=== PATIENT | female | born 1940 | race Caucasian/White ===

== ENCOUNTER 2016-07-22 10:19 | Inpatient (IN) | payer MEDICARE, OTHER ==
[2016-07-22 11:34] LABS: ABSOLUTE EOSINOPHILS # (AUTO) 0.1 10^3/uL (0.0-0.6); ABSOLUTE MONOCYTES (AUTO) 0.8 10^3/uL (0.1-1.4); ABSOLUTE NEUT (AUTO) 9.6 10^3/uL (1.7-8.2); BASOPHILS % (AUTO) 0.2 % (0-2); EOSINOPHILS % (AUTO) 1.3 % (0-6); HEMATOCRIT 31.9 % (36.0-47.0); HGB HCT DIFFERENCE -1.9; LYMPHOCYTES % (AUTO) 8.8 % (13-45); MEAN CORPUSCULAR HEMOGLOBIN 30.5 pg (27.0-33.4); MEAN CORPUSCULAR HGB CONC 31.3 g/dL (32.0-36.0); MEAN CORPUSCULAR VOLUME 98 fl (80-97); MONOCYTES % (AUTO) 6.7 % (3-13); RED BLOOD COUNT 3.27 10^6/uL (3.72-5.28); RED CELL DISTRIBUTION WIDTH 14.6 % (11.5-14.0); WHITE BLOOD COUNT 11.6 10^3/uL (4.0-10.5)
[2016-07-22 11:53] LABS: ALANINE AMINOTRANSFERASE 36 U/L (9-52); ALBUMIN 3.5 g/dL (3.5-5.0); ALKALINE PHOSPHATASE 96 U/L (38-126); ASPARTATE AMINO TRANSFERASE 26 U/L (14-36); BILIRUBIN,TOTAL 0.5 mg/dL (0.2-1.3); BLOOD UREA NITROGEN 45 mg/dL (7-20); CALCIUM 8.9 mg/dL (8.4-10.2); CHLORIDE 92 mmol/L (98-107); CREATINE KINASE 41 U/L (30-135); GLUCOSE 289 mg/dL (75-110); TOTAL PROTEIN 5.8 g/dL (6.3-8.2)
[2016-07-22] MEDS ORDERED: IPRATROPIUM/ALBUTEROL 0.5-2.5 MG/3 ML AMPUL NEB ONE (11:59)
[2016-07-22 12:07] LABS: CREATINE KINASE MB 2.43 ng/mL (<4.55)
[2016-07-22 12:16] LABS: TROPONIN I 0.088 ng/mL
[2016-07-22 12:17] LABS: ANION GAP 8 (5-19); CARBON DIOXIDE 41 mmol/L (22-30)
[2016-07-22 12:47] LABS: VENOUS BLOOD BASE EXCESS 12.2 mmol/L; VENOUS BLOOD HCO3 41.7 mmol/L (20-32); VENOUS BLOOD PH 7.3 (7.30-7.42)
[2016-07-22 12:52] LABS: VENOUS BLOOD PCO2 87.6 mmHg (35-63)
--- NOTE | 2016-07-22 12:55 | ER Document Report ---
[id number] SHORTNESS OF BREATH Mode of Arrival: Medic Information source: Patient, Relative, Emergency Med Personnel Notes: 76-year-old female history CHF COPD presents in respiratory distress. Patient was found to be D satting initially in the low 80s. Patient notes that she was in the hospital a few weeks ago had gone home on steroids and was doing well. Denies any fevers or chills Patient stopped smoking 10 years ago TRAVEL OUTSIDE OF THE [place] IN LAST 30 DAYS: No - HPI Onset: This morning Onset/Duration: Sudden Quality of pain: No pain Severity: Severe Pain Level: Denies Associated symptoms: Nonproductive cough, Shortness of breath Exacerbated by: Walking, Coughing Relieved by: Denies Similar symptoms previously: Yes Recently seen / treated by doctor: Yes - Related Data Allergies/Adverse Reactions: lisinopril [From Zestril] Allergy (Severe, Verified 08/29/15 13:16) tongue swelling cefotaxime [From Claforan] Allergy (Verified 06/10/16 17:46) Generalized rash Past Medical History - Social History Smoking Status: Former Smoker Cigarette use (# per day): No Chew tobacco use (# tins/day): No Smoking Education Provided: No Family History: COPD, DM, Hyperlipidemia, Hypertension - Past Medical History Cardiac Medical History: Reports: Hx Congestive Heart Failure, Hx Hypercholesterolemia, Hx Hypertension Pulmonary Medical History: Reports: Hx Asthma, Hx Bronchitis, Hx COPD, Hx Pneumonia, Hx Respiratory Failure Neurological Medical History: Endocrine Medical History: Reports: Hx Diabetes Mellitus Type 2 Renal/ Medical History: GI Medical History: Reports: Hx Gastroesophageal Reflux Disease Musculoskeltal Medical History: Reports Hx Arthritis Skin Medical History: Reports Hx MRSA Psychiatric Medical History: Reports: Hx Anxiety, Hx Depression Infectious Medical History: Reports: Hx MRSA Past Surgical History: Reports: Hx Breast Surgery - benign nodule removed, Hx Cardiac Surgery - ablation, Hx Colostomy - Colon Sigmoid resection on 2015 with colostomy, Hx Hysterectomy, Hx Tonsillectomy, Other - Cataract surgery in her right - Immunizations Immunizations up to date: Yes Hx Diphtheria, Pertussis, Tetanus Vaccination: Yes Hx Pneumococcal Vaccination: 04/08/15 Review of Systems - Review of Systems Notes: REVIEW OF SYSTEMS: CONSTITUTIONAL : Denies fever, chills, or sweats. Denies recent illness. EENT: Denies eye, ear, throat, or mouth pain or symptoms. Denies nasal or sinus congestion or discharge. Denies throat, tongue, or mouth swelling or difficulty swallowing. CARDIOVASCULAR: Denies chest pain. Denies palpitations or racing or irregular heart beat. Denies ankle edema. RESPIRATORY: Admits shortness breath difficulty breathing GASTROINTESTINAL: Denies abdominal pain or distention. Denies nausea, vomiting , or diarrhea. Denies blood in vomitus, stools, or per rectum. Denies black, tarry stools. Denies constipation. GENITOURINARY: Denies difficulty urinating, painful urination, burning, frequency, blood in urine, or discharge. FEMALE GENITOURINARY: Denies vaginal bleeding, heavy or abnormal periods, irregular periods. Denies vaginal discharge or odor. MUSCULOSKELETAL: Denies back or neck pain or stiffness. Denies joint pain or swelling. SKIN: Denies rash, lesions or sores. HEMATOLOGIC : Denies easy bruising or bleeding. LYMPHATIC: Denies swollen, enlarged glands. NEUROLOGICAL: Denies confusion or altered mental status. Denies passing out or loss of consciousness. Denies dizziness or lightheadedness. Denies headache. Denies weakness or paralysis or loss of use of either side. Denies problems with gait or speech. Denies sensory loss, numbness, or tingling. Denies seizures. PSYCHIATRIC: Denies anxiety or stress. Denies depression, suicidal ideation, or homicidal ideation. ALL OTHER SYSTEMS REVIEWED AND NEGATIVE. Dictation was performed using [employer] voice recognition software PHYSICAL EXAMINATION: GENERAL: Moderate respiratory distress noted HEAD: Atraumatic, normocephalic. EYES: Pupils equal round and reactive to light, extraocular movements intact, conjunctiva are normal. ENT: Nares patent, oropharynx clear without exudates. Moist mucous membranes. NECK: Normal range of motion, supple without lymphadenopathy LUNGS: Crackles wheezing all throughout moderate respiratory distress HEART: Regular rate and rhythm without murmurs ABDOMEN: Soft, nontender, nondistended abdomen. No guarding, no rebound. No masses appreciated. Female : deferred Musculoskeletal: Normal range of motion, no pitting or edema. No cyanosis. NEUROLOGICAL: Cranial nerves grossly intact. Normal speech, normal gait. Normal sensory, motor exams PSYCH: Normal mood, normal affect. SKIN: Warm, Dry, normal turgor, no rashes or lesions noted. Physical Exam - Vital signs Vitals: Resp Pulse Ox 22 H 95 07/22/16 10:30 07/22/16 10:30 Course - Re-evaluation Re-evalutation: 07/22/16 12:54 Patient immediately placed on BiPAP, lab work imaging are pending. I expect patient to be hypercapnic to require admission - Vital Signs Vital signs: Temp Pulse Resp BP Pulse Ox 27 H 100 07/22/16 10:44 07/22/16 10:44 - Laboratory Result Diagrams: 07/22/16 11:08 07/22/16 11:08 Laboratory results interpreted by me: 07/22/16 07/22/16 07/22/16 11:08 11:08 11:08 WBC 11.6 H RBC 3.27 L Hgb 10.0 L Hct 31.9 L MCV 98 H MCHC 31.3 L RDW 14.6 H Seg Neutrophils % 83.0 H Lymphocytes % 8.8 L Absolute Neutrophils 9.6 H VBG pCO2 VBG HCO3 Chloride 92 L Carbon Dioxide 41 H* BUN 45 H Creatinine 1.90 H Est GFR ( Amer) 31 L Est GFR (Non-Af Amer) 26 L Glucose 289 H NT-Pro-B Natriuret Pep 1120 H Total Protein 5.8 L 07/22/16 12:35 WBC RBC Hgb Hct MCV MCHC RDW Seg Neutrophils % Lymphocytes % Absolute Neutrophils VBG pCO2 87.6 H* VBG HCO3 41.7 H Chloride Carbon Dioxide BUN Creatinine Est GFR ( Amer) Est GFR (Non-Af Amer) Glucose NT-Pro-B Natriuret Pep Total Protein Discharge - Discharge Clinical Impression: Acute and chronic respiratory failure with hypercapnia Condition: Stable Disposition: ADMITTED INPATIENT Admitting Provider: Hospitalist Unit Admitted: [facility]
[2016-07-22 15:16] LABS: ARTERIAL BLOOD BASE EXCESS 13.5 mmol/L
--- NOTE | 2016-07-22 15:44 | EKG REPORT ---
SEVERITY:- ABNORMAL ECG - SINUS OR ECTOPIC ATRIAL RHYTHM BLOCKED APC PROBABLE LVH WITH SECONDARY REPOL ABNRM : Confirmed by: Laney Lee 22-Jul-2016 15:44:20
[2016-07-22] MEDS ORDERED: ACETAMINOPHEN 325 MG TABLET PO PRN (15:45)
[2016-07-22] MEDS ORDERED: ONDANSETRON HCL INJ/PF 4 MG/2 ML SDV IV PRN (15:45)
[2016-07-22] MEDS ORDERED: ONDANSETRON 4 MG TAB.RAPDIS PO PRN (15:45)
[2016-07-22] MEDS ORDERED: DEXTROSE 40% GEL 15 GM TUBE PO PRN ×2 (16:06)
[2016-07-22] MEDS ORDERED: DEXTROSE 50%-WATER 25 GM/50 ML DISP.SYRIN IV PRN ×2 (16:06)
[2016-07-22] MEDS ORDERED: GLUCAGON,HUMAN RECOMB 1 MG INJ IM PRN (16:06)
--- NOTE | 2016-07-22 16:06 | PDOC H&P ---
History of Present Illness Admission Date/PCP: 07/22/16 15:30 ANUEL SOMMERS, Patient complains of: Shortness of breath History of Present Illness: GARCIA CORBIN is a 76 year old female with a history of COPD chronically on 3 L of oxygen per nasal cannula who presents with a one-day history of worsening confusion and shortness of breath as well as a productive cough. The patient was hospitalized last month after having an acute COPD exacerbation. The patient was seen in the emergency room and was placed on BiPAP. The patient when she presented was initially confused and she is more alert now but is still slightly confused. Patient denies any fevers or chills. She denies any chest pain. Denies any orthopnea or PND. Denies any lower extremity edema. Patient has finished her chemotherapy that she is taking for her colon cancer. Past Medical History Cardiac Medical History: Reports: Congestive Heart Failure, Hyperlipidema, Hypertension Pulmonary Medical History: Reports: Asthma, Bronchitis, Chronic Obstructive Pulmonary Disease (COPD), Pneumonia, Respiratory Failure EENT Medical History: Reports: Cataracts Neurological Medical History: Reports: Ischemic CVA Endocrine Medical History: Reports: Diabetes Mellitus Type 2 Renal/ Medical History: Reports: Chronic Kidney Disease Malignancy Medical History: Reports: Colorectal Cancer GI Medical History: Reports: Gastroesophageal Reflux Disease Musculoskeltal Medical History: Reports: Arthritis Skin Medical History: Reports: None Psychiatric Medical History: Reports: Depression Traumatic Medical History: Reports: None Hematology: Denies: Anemia, Sickle Cell Disease Infectious Medical History: Reports: Methicillin-Resistant Staph Aureus Past Surgical History Past Surgical History: Reports: Colostomy - Colon Sigmoid resection on 2015 with colostomy, Hysterectomy, Tonsillectomy, Other - Cataract surgery in her right Denies: Amputation Social History Information Source: Patient Lives with: Family Smoking Status: Former Smoker Frequency of Alcohol Use: None Hx Recreational Drug Use: No Drugs: None Hx Prescription Drug Abuse: No - Advance Directive Resuscitation Status: Do Not Resuscitate Family History Family History: COPD, DM, Hyperlipidemia, Hypertension Parental Family History Reviewed: Yes Children Family History Reviewed: No Sibling(s) Family History Reviewed.: No Medication/Allergy Home Medications: Atorvastatin Calcium [Lipitor 20 mg Tablet] 20 mg PO QHS #0 tablet 08/29/15 Ferrous Sulfate [Feosol 325 mg Tablet] 325 mg PO DAILY #0 tablet 08/29/15 Montelukast Sodium [Singulair 10 mg Tablet] 10 mg PO QHS #0 tablet 08/29/15 Venlafaxine HCl [Effexor 75 mg Tablet] 150 mg PO DAILY #0 tablet 08/29/15 Cetirizine HCl [Zyrtec 10 mg Tablet] 10 mg PO DAILY 09/07/15 Albuterol Sulfate [Ventolin 0.083% Neb 2.5 mg/3 mL Ampul] 2.5 mg NEB RTQ4HP PRN #0 vial.neb 09/19/15 Budesonide [Pulmicort Neb 0.5 mg/2 ml Ampul] 0.5 mg NEB RTQ12 #0 ampul.neb 09/18 Furosemide [Lasix 40 mg Tablet] 40 mg PO DAILY #0 tablet 09/19/15 Aspirin 81 mg PO DAILY PRN 06/09/16 Amlodipine Besylate [Norvasc 10 mg Tablet] 10 mg PO DAILY tablet 06/11/16 Fluticasone Propionate [Flonase Nasal [place] 50 Mcg/[place] 16 gm] 2 spray NASL Q12 spray.pump 06/11/16 Allopurinol [Zyloprim] 300 mg PO QHS 06/28/16 Gabapentin [Neurontin 100 mg Capsule] 100 mg PO BID 06/28/16 Hydralazine HCl [Apresoline 50 mg Tablet] 50 mg PO BID 06/28/16 Glimepiride [Amaryl 1 mg Tablet] 2 mg PO ACBRKFST #0 tablet 07/02/16 Allergies/Adverse Reactions: lisinopril [From Zestril] Allergy (Severe, Verified 08/29/15 13:16) tongue swelling cefotaxime [From Claforan] Allergy (Verified 06/10/16 17:46) Generalized rash Review of Systems Constitutional: PRESENT: fatigue. ABSENT: chills, fever(s), headache(s), weight gain, weight loss Eyes: ABSENT: visual disturbances Ears: ABSENT: hearing changes Cardiovascular: PRESENT: dyspnea on exertion. ABSENT: chest pain, edema, orthropnea, palpitations Respiratory: PRESENT: as per HPI Gastrointestinal: PRESENT: other - Has had colon cancer and has a colostomy in the left lower quadrant Genitourinary: ABSENT: dysuria, hematuria Musculoskeletal: PRESENT: back pain Integumentary: ABSENT: rash, wounds Neurological: PRESENT: confusion - Confusion started today. Psychiatric: ABSENT: anxiety, depression Endocrine: ABSENT: cold intolerance, heat intolerance, polydipsia, polyuria Hematologic/Lymphatic: ABSENT: easy bleeding, easy bruising Physical Exam Vital Signs: Temp Pulse Resp BP Pulse Ox 25 H 135/67 H 90 L 07/22/16 15:01 07/22/16 15:01 07/22/16 15:01 General appearance: PRESENT: mild distress, morbidly obese Head exam: PRESENT: atraumatic, normocephalic Eye exam: PRESENT: conjunctiva pink, EOMI, PERRLA. ABSENT: scleral icterus Ear exam: PRESENT: normal external ear exam Mouth exam: PRESENT: moist, tongue midline Neck exam: ABSENT: carotid bruit, JVD, lymphadenopathy, thyromegaly Respiratory exam: PRESENT: decreased breath sounds, wheezes - Bilateral wheezes. Cardiovascular exam: PRESENT: RRR. ABSENT: diastolic murmur, rubs, systolic murmur Pulses: PRESENT: normal dorsalis pedis pul Vascular exam: PRESENT: normal capillary refill GI/Abdominal exam: PRESENT: normal bowel sounds, soft, other - Colostomy in the left lower quadrant. ABSENT: distended, guarding, mass, organolmegaly, rebound , tenderness Rectal exam: PRESENT: deferred Extremities exam: ABSENT: calf tenderness, clubbing, pedal edema Neurological exam: PRESENT: awake, oriented to person, oriented to place, CN II- XII grossly intact. ABSENT: oriented to time, oriented to situation, motor sensory deficit Psychiatric exam: PRESENT: flat affect Skin exam: PRESENT: dry, intact, warm. ABSENT: cyanosis, rash Results Impressions: Chest X-Ray 07/22/16 10:36 IMPRESSION: Cardiomegaly. The previously described pulmonary vascular congestion appears improved. No acute consolidations or pleural effusions are identified. Other findings as noted above Assessment & Plan - Diagnosis (1) Acute and chronic respiratory failure with hypercapnia Is this a current diagnosis for this admission?: YesPlan: This is secondary to her acute COPD exacerbation. The patient is currently requiring a BiPAP. When she presented she was confused and she is less confused now. The patient and the patient's daughter is at the bedside request that she be a DO NOT RESUSCITATE. We will treat with IV Solu-Medrol, Mucomyst nebs as well as duo nebs. Patient does not have any obvious infection but we will go ahead and give Levaquin. (2) Decompensated COPD with exacerbation (chronic obstructive pulmonary disease) Is this a current diagnosis for this admission?: YesPlan: The patient has had long-standing COPD and normally wears 3 L per nasal cannula at home. We will continue with BiPAP as well as steroids, Mucomyst, nebulizers , Levaquin. (3) Neuropathy, diabetic Qualifiers: Diabetes mellitus type: type 2 Diabetes mellitus complication detail: diabetic polyneuropathy Qualified Code(s): E11.42 - Type 2 diabetes mellitus with diabetic polyneuropathy Is this a current diagnosis for this admission?: Yes (4) Anemia Qualifiers: Anemia type: iron deficiency Iron deficiency anemia type: chronic blood loss Qualified Code(s): D50.0 - Iron deficiency anemia secondary to blood loss (chronic) Is this a current diagnosis for this admission?: YesPlan: Patient has some anemia which is most likely secondary to chronic disease. (5) Chronic renal failure, stage 3 (moderate) Is this a current diagnosis for this admission?: YesPlan: Patient appears to be euvolemic at this time. 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 Pelletier. She recently finished up her chemotherapy. She is not neutropenic. (7) Hyperkalemia Is this a current diagnosis for this admission?: YesPlan: Patient in the past has had problems with hyperkalemia. Her potassium is normal today. She normally takes Kayexalate every other day at home. (8) CHF (congestive heart failure) Qualifiers: Congestive heart failure type: diastolic Congestive heart failure chronicity: unspecified congestive heart failure chronicity Qualified Code(s): I50.30 - Unspecified diastolic (congestive) heart failure Is this a current diagnosis for this admission?: YesPlan: Patient is euvolemic at this time. (9) Diabetes mellitus Qualifiers: Diabetes mellitus type: type 2 Diabetes mellitus complication status: with kidney complications Diabetes mellitus complication detail: with chronic kidney disease Diabetes mellitus exterminator helper termite insulin use: without exterminator helper termite use Chronic kidney disease stage: stage 3 (moderate) Qualified Code(s): E11.22 - Type 2 diabetes mellitus with diabetic chronic kidney disease; N18.1 - Chronic kidney disease, stage 1; Z79.4 - terminal gauger ( current) use of insulin Is this a current diagnosis for this admission?: YesPlan: We'll cover with sliding scale insulin. - Time Time Spent: 50 to 70 Minutes Medications reviewed and adjusted accordingly: Yes Anticipated discharge: Home - Inpatient Certification Medical Necessity: Need Close Monitoring Due to Risk of Patient Decompensation, Need for IV Antibiotics - Plan Summary Plan Summary: We'll admit as a regular admission as I anticipate this will require greater than a 2 midnight hospital stay. The patient requests to be a DO NOT RESUSCITATE.
[2016-07-22] MEDS ORDERED: ENOXAPARIN SODIUM INJ 40 MG/0.4 ML DISP.SYRIN SUBCUT ONE (17:00)
[2016-07-22] MEDS: LEVOFLOXACIN 750 MG/D5W RTU 750 MG/150 ML RTUPB IV SCH (18:34)
[2016-07-22 19:39] LABS: APPEARANCE,URINE CLEAR; BILIRUBIN,URINE NEGATIVE (NEGATIVE); GLUCOSE, URINE 50 mg/dL (NEGATIVE); KETONES,URINE NEGATIVE (NEGATIVE); LEUKOCYTE ESTERASE,URINE NEGATIVE (NEGATIVE); NITRITE,URINE NEGATIVE (NEGATIVE); PROTEIN,URINE 100 mg/dL (NEGATIVE); URINE SPECIFIC GRAVITY 1.013; UROBILINOGEN,URINE NEGATIVE mg/dL (<2.0)
[2016-07-22] MEDS ORDERED: IPRATROPIUM/ALBUTEROL 0.5-2.5 MG/3 ML AMPUL NEB SCH (20:00)
[2016-07-22] MEDS: ACETYLCYSTEINE 10% NEB 400 MG/4 ML VIAL NEB SCH (20:19)
[2016-07-22] MEDS: METHYLPREDNISOLONE INJ 40 MG/1 ML SDV IV SCH (21:33)
[2016-07-23] MEDS: ACETYLCYSTEINE 10% NEB 400 MG/4 ML VIAL NEB SCH ×4 (02:01→19:38)
[2016-07-23] MEDS: IPRATROPIUM/ALBUTEROL 0.5-2.5 MG/3 ML AMPUL NEB PRN ×4 (02:02→19:38)
[2016-07-23] MEDS ORDERED: CLONAZEPAM 1 MG TABLET PO PRN (03:56)
[2016-07-23] MEDS ORDERED: CLONAZEPAM 1 MG TABLET PO SCH (06:00)
[2016-07-23] MEDS: METHYLPREDNISOLONE INJ 40 MG/1 ML SDV IV SCH ×3 (06:22→21:09)
[2016-07-23] MEDS: INSULIN REG, HUMAN 100 UNIT/ML 3 ML VIAL (PYX) SUBCUT PRN ×4 (09:49→23:28)
[2016-07-23] MEDS: ENOXAPARIN SODIUM INJ 40 MG/0.4 ML DISP.SYRIN SUBCUT SCH (09:49)
[2016-07-23] MEDS ORDERED: FUROSEMIDE 40 MG TABLET PO SCH (10:00)
[2016-07-23] MEDS ORDERED: CETIRIZINE 10 MG TABLET PO ONE (10:30)
[2016-07-23] MEDS ORDERED: FUROSEMIDE 40 MG TABLET PO ONE (10:30)
--- NOTE | 2016-07-23 10:40 | PDOC PROGRESS REPORT ---
Subjective Progress Note for:: 07/23/16 Subjective:: Patient has some anxiety overnight but overall reports her breathing is doing better. Physical Exam Vital Signs: Temp Pulse Resp BP Pulse Ox 98.0 F 42 L 16 153/79 H 98 07/23/16 07:17 07/23/16 07:17 07/23/16 07:17 07/23/16 07:17 07/23/16 07:17 Intake & Output 07/22/16 07/23/16 07/24/16 06:59 06:59 06:59 Intake Total 365 Output Total 150 Balance 215 Weight 99.87 kg General appearance: PRESENT: no acute distress Eye exam: PRESENT: conjunctiva pink Mouth exam: PRESENT: moist, tongue midline Neck exam: ABSENT: JVD Respiratory exam: PRESENT: wheezes - Scattered few expiratory wheezes. Cardiovascular exam: PRESENT: RRR. ABSENT: diastolic murmur, rubs, systolic murmur GI/Abdominal exam: PRESENT: normal bowel sounds, soft. ABSENT: distended, guarding, mass, organolmegaly, rebound, tenderness Extremities exam: PRESENT: full ROM. ABSENT: calf tenderness, clubbing, pedal edema Neurological exam: PRESENT: alert, awake, oriented to person, oriented to place , oriented to time Psychiatric exam: PRESENT: appropriate affect Skin exam: PRESENT: dry, intact, warm. ABSENT: cyanosis, rash Results Laboratory Results: 07/22/16 07/22/16 15:03 19:15 Carbonic Acid 2.61 H HCO3/H2CO3 Ratio 16:1 ABG pH 7.31 L ABG pCO2 86.7 H* ABG pO2 66.0 L ABG HCO3 43.0 H ABG O2 Saturation 90.0 L ABG Base Excess 13.5 FiO2 30% Urine Color YELLOW Urine Appearance CLEAR Urine pH 5.0 Ur Specific [place] 1.013 Urine Protein 100 H Urine Glucose (UA) 50 H Urine Ketones NEGATIVE Urine Blood NEGATIVE Urine Nitrite NEGATIVE Ur Leukocyte Esterase NEGATIVE Urine WBC (Auto) 2 Urine RBC (Auto) 2 Impressions: Chest X-Ray 07/22/16 10:36 IMPRESSION: Cardiomegaly. The previously described pulmonary vascular congestion appears improved. No acute consolidations or pleural effusions are identified. Other findings as noted above Assessment & Plan - Diagnosis (1) Acute and chronic respiratory failure with hypercapnia Is this a current diagnosis for this admission?: YesPlan: This is secondary to her acute COPD exacerbation. The patient is currently requiring a BiPAP. Her confusion is improved. Hopefully we can get her off of BiPAP today. We will treat with IV Solu-Medrol, Mucomyst nebs as well as duo nebs. Patient does not have any obvious infection but we will go ahead and give Levaquin. (2) Decompensated COPD with exacerbation (chronic obstructive pulmonary disease) Is this a current diagnosis for this admission?: YesPlan: The patient has had long-standing COPD and normally wears 3 L per nasal cannula at home. We will continue with BiPAP as well as steroids, Mucomyst, nebulizers , Levaquin. (3) Neuropathy, diabetic Qualifiers: Diabetes mellitus type: type 2 Diabetes mellitus complication detail: diabetic polyneuropathy Qualified Code(s): E11.42 - Type 2 diabetes mellitus with diabetic polyneuropathy Is this a current diagnosis for this admission?: Yes (4) Anemia Qualifiers: Anemia type: iron deficiency Iron deficiency anemia type: chronic blood loss Qualified Code(s): D50.0 - Iron deficiency anemia secondary to blood loss (chronic) Is this a current diagnosis for this admission?: YesPlan: Patient has some anemia which is most likely secondary to chronic disease. (5) Chronic renal failure, stage 3 (moderate) Is this a current diagnosis for this admission?: YesPlan: Patient appears to be euvolemic at this time. 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 Pelletier. She recently finished up her chemotherapy. She is not neutropenic. (7) Hyperkalemia Is this a current diagnosis for this admission?: YesPlan: Patient in the past has had problems with hyperkalemia. Her potassium is normal today. She normally takes Kayexalate every other day at home. (8) CHF (congestive heart failure) Qualifiers: Congestive heart failure type: diastolic Congestive heart failure chronicity: unspecified congestive heart failure chronicity Qualified Code(s): I50.30 - Unspecified diastolic (congestive) heart failure Is this a current diagnosis for this admission?: YesPlan: Patient is euvolemic at this time. (9) Diabetes mellitus Qualifiers: Diabetes mellitus type: type 2 Diabetes mellitus complication status: with kidney complications Diabetes mellitus complication detail: with chronic kidney disease Diabetes mellitus mcfp insulin use: without mcfp use Chronic kidney disease stage: stage 3 (moderate) Qualified Code(s): E11.22 - Type 2 diabetes mellitus with diabetic chronic kidney disease; N18.1 - Chronic kidney disease, stage 1; Z79.4 - residential ( current) use of insulin Is this a current diagnosis for this admission?: YesPlan: We'll cover with sliding scale insulin. - Time Time Spent with patient: 25-34 minutes - Inpatient Certification Medical Necessity: Need Close Monitoring Due to Risk of Patient Decompensation - Plan Summary Plan Summary: We'll see how she does without BiPAP today.
[2016-07-23] MEDS ORDERED: HYDRALAZINE HCL 50 MG TABLET PO ONE (11:00)
[2016-07-23] MEDS ORDERED: VENLAFAXINE HCL 75 MG TABLET PO ONE (11:00)
[2016-07-23] MEDS ORDERED: FERROUS SULFATE 325 MG TABLET PO ONE (11:00)
[2016-07-23] MEDS ORDERED: AMLODIPINE BESYLATE 10 MG TABLET PO ONE (11:00)
[2016-07-23] MEDS: CLONAZEPAM 1 MG TABLET PO SCH ×2 (13:16→21:10)
[2016-07-23] MEDS ORDERED: HYDROCODONE BIT/HOMATROPINE SYRUP 5 ML UDCUP PO PRN (14:17)
[2016-07-23] MEDS: HYDROCODONE BIT/HOMATROPINE 5-1.5 MG TABLET PO PRN ×2 (15:48→22:30)
[2016-07-23] MEDS: GABAPENTIN 100 MG CAPSULE PO SCH (17:13)
[2016-07-23] MEDS: HYDRALAZINE HCL 50 MG TABLET PO SCH (17:13)
[2016-07-23] MEDS: BUDESONIDE NEB 0.5 MG/2 ML AMPUL NEB SCH (19:38)
[2016-07-23] MEDS: ALLOPURINOL 300 MG TABLET PO SCH (21:09)
[2016-07-23] MEDS: ATORVASTATIN CALCIUM 20 MG TABLET PO SCH (21:15)
[2016-07-23] MEDS: MONTELUKAST SODIUM 10 MG TABLET PO SCH (21:17)
[2016-07-23] MEDS: FLUTICASONE NASAL SPRAY 50 MCG/SPRY 120 SPRAY/16 GM NASL SCH (22:26)
[2016-07-24] MEDS: ACETYLCYSTEINE 10% NEB 400 MG/4 ML VIAL NEB SCH (02:07)
[2016-07-24] MEDS: IPRATROPIUM/ALBUTEROL 0.5-2.5 MG/3 ML AMPUL NEB PRN ×2 (02:07→08:02)
[2016-07-24] MEDS: METHYLPREDNISOLONE INJ 40 MG/1 ML SDV IV SCH ×3 (05:12→22:46)
[2016-07-24] MEDS: CLONAZEPAM 1 MG TABLET PO SCH ×3 (05:12→22:46)
[2016-07-24 05:47] LABS: ABSOLUTE MONOCYTES (AUTO) 0.5 10^3/uL (0.1-1.4); ABSOLUTE NEUT (AUTO) 13.4 10^3/uL (1.7-8.2); BASOPHILS % (AUTO) 0.1 % (0-2); HEMATOCRIT 27.8 % (36.0-47.0); HEMOGLOBIN 9.1 g/dL (12.0-15.5); HGB HCT DIFFERENCE -0.5; LYMPHOCYTES % (AUTO) 6.6 % (13-45); MEAN CORPUSCULAR HEMOGLOBIN 30.5 pg (27.0-33.4); MEAN CORPUSCULAR HGB CONC 32.9 g/dL (32.0-36.0); MONOCYTES % (AUTO) 3.5 % (3-13); RED BLOOD COUNT 2.99 10^6/uL (3.72-5.28); RED CELL DISTRIBUTION WIDTH 14.1 % (11.5-14.0); SEGMENTED NEUTROPHILS % (AUTO) 89.8 % (42-78)
[2016-07-24 05:51] LABS: MEAN CORPUSCULAR VOLUME 93 fl (80-97)
[2016-07-24 05:52] LABS: ANION GAP 9 (5-19); BLOOD UREA NITROGEN 60 mg/dL (7-20); CALCIUM 8.9 mg/dL (8.4-10.2); CARBON DIOXIDE 37 mmol/L (22-30); CHLORIDE 93 mmol/L (98-107); CREATININE RESULT 2.39 mg/dL (0.52-1.25); GLUCOSE 187 mg/dL (75-110); POTASSIUM 4.4 mmol/L (3.6-5.0)
[2016-07-24] MEDS: BUDESONIDE NEB 0.5 MG/2 ML AMPUL NEB SCH ×2 (08:02→20:03)
[2016-07-24] MEDS: INSULIN REG, HUMAN 100 UNIT/ML 3 ML VIAL (PYX) SUBCUT PRN ×3 (09:47→22:46)
[2016-07-24] MEDS: ENOXAPARIN SODIUM INJ 40 MG/0.4 ML DISP.SYRIN SUBCUT SCH (09:50)
[2016-07-24] MEDS: AMLODIPINE BESYLATE 10 MG TABLET PO SCH (09:52)
[2016-07-24] MEDS: FERROUS SULFATE 325 MG TABLET PO SCH (09:53)
[2016-07-24] MEDS: FUROSEMIDE 40 MG TABLET PO SCH (09:53)
[2016-07-24] MEDS: HYDRALAZINE HCL 50 MG TABLET PO SCH ×2 (09:53→17:02)
[2016-07-24] MEDS: CETIRIZINE 10 MG TABLET PO SCH (09:53)
[2016-07-24] MEDS: GABAPENTIN 100 MG CAPSULE PO SCH ×2 (09:53→17:02)
[2016-07-24] MEDS: VENLAFAXINE HCL 75 MG TABLET PO SCH (09:54)
[2016-07-24] MEDS: FLUTICASONE NASAL SPRAY 50 MCG/SPRY 120 SPRAY/16 GM NASL SCH ×2 (09:54→22:45)
[2016-07-24] MEDS ORDERED: ASPIRIN 81 MG TABLET, CHEWABLE PO PRN (10:00)
--- NOTE | 2016-07-24 11:17 | PDOC PROGRESS REPORT ---
Subjective Progress Note for:: 07/24/16 Subjective:: Patient reports that her breathing is doing much better. Physical Exam Vital Signs: Temp Pulse Resp BP Pulse Ox 97.4 F 79 24 H 144/79 H 93 07/24/16 07:29 07/24/16 07:29 07/24/16 07:29 07/24/16 07:29 07/24/16 07:29 Intake & Output 07/23/16 07/24/16 07/25/16 06:59 06:59 06:59 Intake Total 365 1795 Output Total 150 1950 Balance 215 -155 Weight 99.87 kg 98.7 kg General appearance: PRESENT: no acute distress Eye exam: PRESENT: conjunctiva pink Mouth exam: PRESENT: moist, tongue midline Neck exam: ABSENT: JVD Respiratory exam: PRESENT: clear to auscultation mariel. ABSENT: rales, rhonchi, wheezes Cardiovascular exam: PRESENT: RRR. ABSENT: diastolic murmur, rubs, systolic murmur GI/Abdominal exam: PRESENT: normal bowel sounds, soft. ABSENT: distended, guarding, mass, organolmegaly, rebound, tenderness Extremities exam: ABSENT: calf tenderness, clubbing, pedal edema Neurological exam: PRESENT: alert, awake, oriented to person, oriented to place , oriented to time, oriented to situation Psychiatric exam: PRESENT: appropriate affect Skin exam: PRESENT: dry, intact, warm. ABSENT: cyanosis, rash Results Laboratory Results: 07/24/16 04:57 07/24/16 04:57 07/24/16 07/24/16 04:57 04:57 WBC 15.0 H RBC 2.99 L Hgb 9.1 L Hct 27.8 L MCV 93 D MCH 30.5 MCHC 32.9 RDW 14.1 H Plt Count 245 Seg Neutrophils % 89.8 H Lymphocytes % 6.6 L Monocytes % 3.5 Eosinophils % 0.0 Basophils % 0.1 Absolute Neutrophils 13.4 H Absolute Lymphocytes 1.0 Absolute Monocytes 0.5 Absolute Eosinophils 0.0 Absolute Basophils 0.0 Sodium 139.0 Potassium 4.4 Chloride 93 L Carbon Dioxide 37 H Anion Gap 9 BUN 60 H Creatinine 2.39 H Est GFR ( Amer) 24 L Est GFR (Non-Af Amer) 20 L Glucose 187 H Calcium 8.9 07/23/16 09:55 Nasophary (Mrsa Only) MRSA Surveillance Culture - Final NO MRSA RECOVERED Impressions: Chest X-Ray 07/22/16 10:36 IMPRESSION: Cardiomegaly. The previously described pulmonary vascular congestion appears improved. No acute consolidations or pleural effusions are identified. Other findings as noted above Assessment & Plan - Diagnosis (1) Acute and chronic respiratory failure with hypercapnia Is this a current diagnosis for this admission?: YesPlan: This is secondary to her acute COPD exacerbation. The patient was taken off of the BiPAP this morning. Her confusion is improved. We will treat with IV Solu- Medrol, duo nebs and hold the Mucomyst.. Patient does not have any obvious infection but we will go ahead and give Levaquin. (2) Decompensated COPD with exacerbation (chronic obstructive pulmonary disease) Is this a current diagnosis for this admission?: YesPlan: The patient has had long-standing COPD and normally wears 3 L per nasal cannula at home. We will continue with steroids, nebulizers, Levaquin. (3) Neuropathy, diabetic Qualifiers: Diabetes mellitus type: type 2 Diabetes mellitus complication detail: diabetic polyneuropathy Qualified Code(s): E11.42 - Type 2 diabetes mellitus with diabetic polyneuropathy Is this a current diagnosis for this admission?: Yes (4) Anemia Qualifiers: Anemia type: iron deficiency Iron deficiency anemia type: chronic blood loss Qualified Code(s): D50.0 - Iron deficiency anemia secondary to blood loss (chronic) Is this a current diagnosis for this admission?: YesPlan: Patient has some anemia which is most likely secondary to chronic disease. (5) Chronic renal failure, stage 3 (moderate) Is this a current diagnosis for this admission?: YesPlan: Patient appears to be euvolemic at this time. 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 Pelletier. She recently finished up her chemotherapy. She is not neutropenic. (7) Hyperkalemia Is this a current diagnosis for this admission?: YesPlan: Patient in the past has had problems with hyperkalemia. Her potassium is normal today. She normally takes Kayexalate every other day at home. (8) CHF (congestive heart failure) Qualifiers: Congestive heart failure type: diastolic Congestive heart failure chronicity: unspecified congestive heart failure chronicity Qualified Code(s): I50.30 - Unspecified diastolic (congestive) heart failure Is this a current diagnosis for this admission?: YesPlan: Patient is euvolemic at this time. (9) Diabetes mellitus Qualifiers: Diabetes mellitus type: type 2 Diabetes mellitus complication status: with kidney complications Diabetes mellitus complication detail: with chronic kidney disease Diabetes mellitus termite inspector insulin use: without [facility] use Chronic kidney disease stage: stage 3 (moderate) Qualified Code(s): E11.22 - Type 2 diabetes mellitus with diabetic chronic kidney disease; N18.1 - Chronic kidney disease, stage 1; Z79.4 - [facility] ( current) use of insulin Is this a current diagnosis for this admission?: YesPlan: We'll cover with sliding scale insulin. - Time Time Spent with patient: 15-24 minutes - Inpatient Certification Medical Necessity: Need Close Monitoring Due to Risk of Patient Decompensation
[2016-07-24] MEDS ORDERED: LACTULOSE SYRUP 20 GM/30 ML UDCUP PO ONE (13:00)
[2016-07-24] MEDS: LEVOFLOXACIN 750 MG/D5W RTU 750 MG/150 ML RTUPB IV SCH (17:01)
[2016-07-24] MEDS: LACTULOSE SYRUP 20 GM/30 ML UDCUP PO SCH ×2 (17:02→23:48)
[2016-07-24] MEDS: ATORVASTATIN CALCIUM 20 MG TABLET PO SCH (22:45)
[2016-07-24] MEDS: ALLOPURINOL 300 MG TABLET PO SCH (22:45)
[2016-07-24] MEDS: MONTELUKAST SODIUM 10 MG TABLET PO SCH (22:45)
[2016-07-25] MEDS: LACTULOSE SYRUP 20 GM/30 ML UDCUP PO SCH ×4 (05:24→23:24)
[2016-07-25] MEDS: METHYLPREDNISOLONE INJ 40 MG/1 ML SDV IV SCH ×2 (05:28→21:12)
[2016-07-25] MEDS: CLONAZEPAM 1 MG TABLET PO SCH ×3 (05:28→21:12)
[2016-07-25 05:38] LABS: ABSOLUTE LYMPHOCYTES (AUTO) 1.1 10^3/uL (0.5-4.7); ABSOLUTE MONOCYTES (AUTO) 0.7 10^3/uL (0.1-1.4); ABSOLUTE NEUT (AUTO) 16.1 10^3/uL (1.7-8.2); BASOPHILS % (AUTO) 0.1 % (0-2); HEMOGLOBIN 9.2 g/dL (12.0-15.5); HGB HCT DIFFERENCE -0.4; LYMPHOCYTES % (AUTO) 6.2 % (13-45); MEAN CORPUSCULAR HEMOGLOBIN 30.5 pg (27.0-33.4); MEAN CORPUSCULAR HGB CONC 32.9 g/dL (32.0-36.0); MEAN CORPUSCULAR VOLUME 93 fl (80-97); MONOCYTES % (AUTO) 3.9 % (3-13); RED BLOOD COUNT 3.02 10^6/uL (3.72-5.28); RED CELL DISTRIBUTION WIDTH 13.9 % (11.5-14.0); SEGMENTED NEUTROPHILS % (AUTO) 89.8 % (42-78); WHITE BLOOD COUNT 17.9 10^3/uL (4.0-10.5)
[2016-07-25 05:48] LABS: ANION GAP 7 (5-19); BLOOD UREA NITROGEN 69 mg/dL (7-20); CALCIUM 8.8 mg/dL (8.4-10.2); CARBON DIOXIDE 36 mmol/L (22-30); CHLORIDE 96 mmol/L (98-107); CREATININE RESULT 2.19 mg/dL (0.52-1.25); GLUCOSE 188 mg/dL (75-110); POTASSIUM 4.8 mmol/L (3.6-5.0); SODIUM 139.3 mmol/L (137-145)
[2016-07-25] MEDS: BUDESONIDE NEB 0.5 MG/2 ML AMPUL NEB SCH ×2 (07:58→19:55)
[2016-07-25] MEDS: ENOXAPARIN SODIUM INJ 40 MG/0.4 ML DISP.SYRIN SUBCUT SCH (08:43)
[2016-07-25] MEDS: INSULIN REG, HUMAN 100 UNIT/ML 3 ML VIAL (PYX) SUBCUT PRN ×4 (08:43→21:53)
[2016-07-25] MEDS: HYDRALAZINE HCL 50 MG TABLET PO SCH ×2 (10:06→17:57)
[2016-07-25] MEDS: FLUTICASONE NASAL SPRAY 50 MCG/SPRY 120 SPRAY/16 GM NASL SCH ×2 (10:06→21:11)
[2016-07-25] MEDS: VENLAFAXINE HCL 75 MG TABLET PO SCH (10:07)
[2016-07-25] MEDS: ASPIRIN 81 MG TABLET, CHEWABLE PO SCH (10:07)
[2016-07-25] MEDS: FUROSEMIDE 40 MG TABLET PO SCH (10:07)
[2016-07-25] MEDS: GABAPENTIN 100 MG CAPSULE PO SCH ×2 (10:07→17:57)
[2016-07-25] MEDS: FERROUS SULFATE 325 MG TABLET PO SCH (10:07)
[2016-07-25] MEDS: CETIRIZINE 10 MG TABLET PO SCH (10:07)
[2016-07-25] MEDS: AMLODIPINE BESYLATE 10 MG TABLET PO SCH (10:07)
--- NOTE | 2016-07-25 13:09 | PDOC PROGRESS REPORT ---
Subjective Progress Note for:: 07/25/16 Subjective:: Denies any complaints. Physical Exam Vital Signs: Temp Pulse Resp BP Pulse Ox 97.5 F 87 22 H 153/77 H 99 07/25/16 08:20 07/25/16 08:20 07/25/16 08:20 07/25/16 08:20 07/25/16 08:20 Intake & Output 07/24/16 07/25/16 07/26/16 06:59 06:59 06:59 Intake Total 1795 900 Output Total 1950 1201 Balance -155 -301 Weight 98.7 kg 98.7 kg General appearance: PRESENT: no acute distress Eye exam: PRESENT: conjunctiva pink Mouth exam: PRESENT: moist, tongue midline Neck exam: ABSENT: JVD Respiratory exam: PRESENT: clear to auscultation mariel. ABSENT: rales, rhonchi, wheezes Cardiovascular exam: PRESENT: RRR. ABSENT: diastolic murmur, rubs, systolic murmur GI/Abdominal exam: PRESENT: normal bowel sounds, soft. ABSENT: distended, guarding, mass, organolmegaly, rebound, tenderness Extremities exam: ABSENT: calf tenderness, clubbing, pedal edema Neurological exam: PRESENT: alert, awake, oriented to person, oriented to place , oriented to time, oriented to situation Skin exam: PRESENT: dry, intact, warm. ABSENT: cyanosis, rash Results Laboratory Results: 07/25/16 04:46 07/25/16 04:46 07/25/16 07/25/16 04:46 04:46 WBC 17.9 H RBC 3.02 L Hgb 9.2 L Hct 28.0 L MCV 93 MCH 30.5 MCHC 32.9 RDW 13.9 Plt Count 267 Seg Neutrophils % 89.8 H Lymphocytes % 6.2 L Monocytes % 3.9 Eosinophils % 0.0 Basophils % 0.1 Absolute Neutrophils 16.1 H Absolute Lymphocytes 1.1 Absolute Monocytes 0.7 Absolute Eosinophils 0.0 Absolute Basophils 0.0 Sodium 139.3 Potassium 4.8 Chloride 96 L Carbon Dioxide 36 H Anion Gap 7 BUN 69 H Creatinine 2.19 H Est GFR ( Amer) 26 L Est GFR (Non-Af Amer) 22 L Glucose 188 H Calcium 8.8 07/23/16 09:55 Nasophary ([facility] Only) MRSA Surveillance Culture - Final NO MRSA RECOVERED Impressions: Chest X-Ray 07/22/16 10:36 IMPRESSION: Cardiomegaly. The previously described pulmonary vascular congestion appears improved. No acute consolidations or pleural effusions are identified. Other findings as noted above Assessment & Plan - Diagnosis (1) Acute and chronic respiratory failure with hypercapnia Is this a current diagnosis for this admission?: YesPlan: This is secondary to her acute COPD exacerbation. Her confusion is improved. We will treat with IV Solu-Medrol, duo nebs and Levaquin. (2) Decompensated COPD with exacerbation (chronic obstructive pulmonary disease) Is this a current diagnosis for this admission?: YesPlan: The patient has had long-standing COPD and normally wears 3 L per nasal cannula at home. We will continue with steroids, nebulizers, Levaquin. Will decrease the dose of Solu-Medrol today. (3) Neuropathy, diabetic Qualifiers: Diabetes mellitus type: type 2 Diabetes mellitus complication detail: diabetic polyneuropathy Qualified Code(s): E11.42 - Type 2 diabetes mellitus with diabetic polyneuropathy Is this a current diagnosis for this admission?: Yes (4) Anemia Qualifiers: Anemia type: iron deficiency Iron deficiency anemia type: chronic blood loss Qualified Code(s): D50.0 - Iron deficiency anemia secondary to blood loss (chronic) Is this a current diagnosis for this admission?: YesPlan: Patient has some anemia which is most likely secondary to chronic disease. (5) Chronic renal failure, stage 3 (moderate) Is this a current diagnosis for this admission?: YesPlan: Patient appears to be euvolemic at this time. 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 Pelletier. She recently finished up her chemotherapy. She is not neutropenic. (7) Hyperkalemia Is this a current diagnosis for this admission?: YesPlan: Patient in the past has had problems with hyperkalemia. Her potassium is normal today. She normally takes Kayexalate every other day at home. (8) CHF (congestive heart failure) Qualifiers: Congestive heart failure type: diastolic Congestive heart failure chronicity: unspecified congestive heart failure chronicity Qualified Code(s): I50.30 - Unspecified diastolic (congestive) heart failure Is this a current diagnosis for this admission?: YesPlan: Patient is euvolemic at this time. (9) Diabetes mellitus Qualifiers: Diabetes mellitus type: type 2 Diabetes mellitus complication status: with kidney complications Diabetes mellitus complication detail: with chronic kidney disease Diabetes mellitus ferry terminal agent insulin use: without ferry terminal agent use Chronic kidney disease stage: stage 3 (moderate) Qualified Code(s): E11.22 - Type 2 diabetes mellitus with diabetic chronic kidney disease; N18.1 - Chronic kidney disease, stage 1; Z79.4 - group home ( current) use of insulin Is this a current diagnosis for this admission?: YesPlan: We'll cover with sliding scale insulin. - Time Time Spent with patient: 25-34 minutes - Inpatient Certification Medical Necessity: Need Close Monitoring Due to Risk of Patient Decompensation - Plan Summary Plan Summary: If she continues to improve we can hopefully discharge home tomorrow.
[2016-07-25] MEDS: MONTELUKAST SODIUM 10 MG TABLET PO SCH (21:12)
[2016-07-25] MEDS: ALLOPURINOL 300 MG TABLET PO SCH (21:12)
[2016-07-25] MEDS: ATORVASTATIN CALCIUM 20 MG TABLET PO SCH (21:12)
[2016-07-26] MEDS: LACTULOSE SYRUP 20 GM/30 ML UDCUP PO SCH ×2 (05:31→11:01)
[2016-07-26] MEDS: CLONAZEPAM 1 MG TABLET PO SCH ×2 (05:32→13:12)
[2016-07-26 05:44] LABS: HEMATOCRIT 29.6 % (36.0-47.0); HEMOGLOBIN 9.6 g/dL (12.0-15.5); HGB HCT DIFFERENCE -0.8; MEAN CORPUSCULAR HEMOGLOBIN 30.4 pg (27.0-33.4); MEAN CORPUSCULAR HGB CONC 32.3 g/dL (32.0-36.0); MEAN CORPUSCULAR VOLUME 94 fl (80-97); RED BLOOD COUNT 3.15 10^6/uL (3.72-5.28); WHITE BLOOD COUNT 16.1 10^3/uL (4.0-10.5)
[2016-07-26 06:06] LABS: ANION GAP 6 (5-19); BLOOD UREA NITROGEN 68 mg/dL (7-20); CARBON DIOXIDE 39 mmol/L (22-30); CHLORIDE 98 mmol/L (98-107); CREATININE RESULT 2.09 mg/dL (0.52-1.25); GLUCOSE 223 mg/dL (75-110); POTASSIUM 5.2 mmol/L (3.6-5.0); SODIUM 143.4 mmol/L (137-145)
[2016-07-26 06:21] LABS: BAND NEUTROPHILS % (MANUAL) 1 % (3-5); BASOPHILS % (MANUAL) 0 % (0-2); EOSINOPHILS % (MANUAL) 0 % (0-6); LYMPHOCYTES % (MANUAL) 1 % (13-45); TOTAL CELLS COUNTED 100
[2016-07-26 06:23] LABS: ANISOCYTOSIS SLIGHT; POLYCHROMASIA SLIGHT; STOMATOCYTES 2+; TOXIC GRANULATION SLIGHT
[2016-07-26 08:00] VITALS: BP 168/75
[2016-07-26] MEDS: INSULIN REG, HUMAN 100 UNIT/ML 3 ML VIAL (PYX) SUBCUT PRN ×2 (08:33→11:42)
[2016-07-26] MEDS: ENOXAPARIN SODIUM INJ 40 MG/0.4 ML DISP.SYRIN SUBCUT SCH (08:35)
[2016-07-26] MEDS: BUDESONIDE NEB 0.5 MG/2 ML AMPUL NEB SCH (08:43)
[2016-07-26] MEDS: METHYLPREDNISOLONE INJ 40 MG/1 ML SDV IV SCH (09:50)
[2016-07-26] MEDS: ASPIRIN 81 MG TABLET, CHEWABLE PO SCH (09:51)
[2016-07-26] MEDS: HYDRALAZINE HCL 50 MG TABLET PO SCH (09:51)
[2016-07-26] MEDS: CETIRIZINE 10 MG TABLET PO SCH (09:51)
[2016-07-26] MEDS: AMLODIPINE BESYLATE 10 MG TABLET PO SCH (09:52)
[2016-07-26] MEDS: FERROUS SULFATE 325 MG TABLET PO SCH (09:52)
[2016-07-26] MEDS: HYDROCODONE BIT/HOMATROPINE 5-1.5 MG TABLET PO PRN (09:52)
[2016-07-26] MEDS: GABAPENTIN 100 MG CAPSULE PO SCH (09:52)
[2016-07-26] MEDS: FUROSEMIDE 40 MG TABLET PO SCH (09:52)
[2016-07-26] MEDS: VENLAFAXINE HCL 75 MG TABLET PO SCH (09:53)
[2016-07-26] MEDS: FLUTICASONE NASAL SPRAY 50 MCG/SPRY 120 SPRAY/16 GM NASL SCH (09:53)
--- NOTE | 2016-07-26 10:26 | PDOC DISCHARGE SUMMARY ---
General - Admit/Disc Date/PCP Admission Date/Primary Care Provider: 07/22/16 14:54 ANUEL Monet SOMMERS, Discharge Date: 07/26/16 - Discharge Diagnosis (1) Acute and chronic respiratory failure with hypercapnia Is this a current diagnosis for this admission?: Yes (2) Decompensated COPD with exacerbation (chronic obstructive pulmonary disease) Is this a current diagnosis for this admission?: Yes (3) Neuropathy, diabetic Is this a current diagnosis for this admission?: Yes (4) Anemia Is this a current diagnosis for this admission?: Yes (5) Chronic renal failure, stage 3 (moderate) Is this a current diagnosis for this admission?: Yes (6) Colon cancer Is this a current diagnosis for this admission?: Yes (7) Hyperkalemia Is this a current diagnosis for this admission?: Yes (8) CHF (congestive heart failure) Is this a current diagnosis for this admission?: Yes (9) Diabetes mellitus Is this a current diagnosis for this admission?: Yes - Additional Information Resuscitation Status: Do Not Resuscitate Discharge Diet: Diabetic Discharge Activity: Activity As Tolerated, Weigh Daily Home Medications: Atorvastatin Calcium [Lipitor 20 mg Tablet] 20 mg PO QHS #0 tablet 08/29/15 Ferrous Sulfate [Feosol 325 mg Tablet] 325 mg PO DAILY #0 tablet 08/29/15 Montelukast Sodium [Singulair 10 mg Tablet] 10 mg PO QHS #0 tablet 08/29/15 Venlafaxine HCl [Effexor 75 mg Tablet] 150 mg PO DAILY #0 tablet 08/29/15 Cetirizine HCl [Zyrtec 10 mg Tablet] 10 mg PO DAILY 09/07/15 Albuterol Sulfate [Ventolin 0.083% Neb 2.5 mg/3 mL Ampul] 2.5 mg NEB RTQ4HP PRN #0 vial.neb 09/19/15 Budesonide [Pulmicort Neb 0.5 mg/2 ml Ampul] 0.5 mg NEB RTQ12 #0 ampul.neb 09/18 Furosemide [Lasix 40 mg Tablet] 40 mg PO DAILY #0 tablet 09/19/15 Aspirin 81 mg PO DAILY PRN 06/09/16 Amlodipine Besylate [Norvasc 10 mg Tablet] 10 mg PO DAILY tablet 06/11/16 Fluticasone Propionate [Flonase Nasal [place] 50 Mcg/[place] 16 gm] 2 spray NASL Q12 spray.pump 06/11/16 Allopurinol [Zyloprim] 300 mg PO QHS 06/28/16 Gabapentin [Neurontin 100 mg Capsule] 100 mg PO BID 06/28/16 Hydralazine HCl [Apresoline 50 mg Tablet] 50 mg PO BID 06/28/16 Glimepiride [Amaryl 1 mg Tablet] 2 mg PO ACBRKFST #0 tablet 07/02/16 Clonazepam [Klonopin] 1 mg PO BID 07/23/16 Prednisone 10 mg PO DAILY #39 tablet 07/26/16 History of Present Illness History of Present Illness: GARCIA CORBIN is a 76 year old female with a history of COPD chronically on 3 L of oxygen per nasal cannula who presents with a one-day history of worsening confusion and shortness of breath as well as a productive cough. The patient was hospitalized last month after having an acute COPD exacerbation. The patient was seen in the emergency room and was placed on BiPAP. The patient when she presented was initially confused and she is more alert now but is still slightly confused. Patient denies any fevers or chills. She denies any chest pain. Denies any orthopnea or PND. Denies any lower extremity edema. Patient has finished her chemotherapy that she is taking for her colon cancer. Hospital Course Hospital Course: 76-year-old female with a history of COPD who presented with confusion and worsening COPD. The patient required BiPAP. Patient also was treated with IV steroids as well as nebulizers. Patient no evidence for infection. The patient 's mental status improved after 2 days and she continued to improve. On the day of discharge she still had a few expiratory wheezes but was feeling much better and she reported that she was back to her baseline. The patient's other medical problems were stable during this hospitalization. Physical Exam Vital Signs: Temp Pulse Resp BP Pulse Ox 97.4 F 92 16 168/75 H 97 07/26/16 10:08 07/26/16 10:08 07/26/16 10:08 07/26/16 10:07/26/16 10:08 Intake & Output 07/25/16 07/26/16 07/27/16 06:59 06:59 06:59 Intake Total 900 1685 Output Total 1201 1100 Balance -301 585 Weight 98.7 kg 103.1 kg General appearance: PRESENT: no acute distress Head exam: PRESENT: atraumatic, normocephalic Eye exam: PRESENT: conjunctiva pink Mouth exam: PRESENT: moist, tongue midline Neck exam: ABSENT: JVD Respiratory exam: PRESENT: wheezes - A few scattered wheezes. Cardiovascular exam: PRESENT: RRR. ABSENT: diastolic murmur, rubs, systolic murmur GI/Abdominal exam: PRESENT: normal bowel sounds, soft. ABSENT: distended, guarding, mass, organolmegaly, rebound, tenderness Extremities exam: ABSENT: calf tenderness, clubbing, pedal edema Neurological exam: PRESENT: alert, awake, oriented to person, oriented to place , oriented to time, oriented to situation Psychiatric exam: PRESENT: appropriate affect Skin exam: PRESENT: dry, intact, warm. ABSENT: cyanosis, rash Results Laboratory Results: 07/26/16 04:55 07/26/16 04:55 07/26/16 07/26/16 04:55 04:55 WBC 16.1 H RBC 3.15 L Hgb 9.6 L Hct 29.6 L MCV 94 MCH 30.4 MCHC 32.3 RDW 14.0 Plt Count 307 Seg Neutrophils % Not Reportable Lymphocytes % Not Reportable Monocytes % Not Reportable Eosinophils % Not Reportable Basophils % Not Reportable Absolute Neutrophils Not Reportable Absolute Lymphocytes Not Reportable Absolute Monocytes Not Reportable Absolute Eosinophils Not Reportable Absolute Basophils Not Reportable Sodium 143.4 Potassium 5.2 H Chloride 98 Carbon Dioxide 39 H Anion Gap 6 BUN 68 H Creatinine 2.09 H Est GFR ( Amer) 28 L Est GFR (Non-Af Amer) 23 L Glucose 223 H Calcium 9.0 Impressions: Chest X-Ray 07/22/16 10:36 IMPRESSION: Cardiomegaly. The previously described pulmonary vascular congestion appears improved. No acute consolidations or pleural effusions are identified. Other findings as noted above Qualifiers PATEINT BEING DISCHARGED WITH ANY OF THE FOLLOWING DIAGNOSIS?: No Plan Discharge Plan: Patient is discharged home in stable condition. She'll follow primary care in 1 -2 weeks.
[2016-07-28 11:41] LABS: PATH REVIEW PATHOLOGIST REVIEWED
== END 2016-07-26 13:20 | disposition home or self-care (01) | DRG 190 ==
LOC: ER 10:19 → EH 14:54 → UNDOADMIN 15:30 → EH 15:30 → 3W 20:13
PROVIDERS: ADMIT Internal Medicine; ATTEND Internal Medicine
PROC: 5A09457 Assistance with Respiratory Ventilation, 24-96 Consecutive Hours, Continuous Positive Airway Pressure (ICD-10-PCS; principal; 2016-07-22)
DX: J44.1 Chronic obstructive pulmonary disease with (acute) exacerbation (principal); J96.22 Acute and chronic respiratory failure with hypercapnia; I13.0 Hypertensive heart and chronic kidney disease with heart failure and stage 1 through stage 4 chronic kidney disease, or unspecified chronic kidney disease; I50.32 Chronic diastolic (congestive) heart failure; C18.7 Malignant neoplasm of sigmoid colon; E78.00 Pure hypercholesterolemia, unspecified; K21.9 Gastro-esophageal reflux disease without esophagitis; E11.22 Type 2 diabetes mellitus with diabetic chronic kidney disease; Z93.3 Colostomy status; Z99.81 Dependence on supplemental oxygen; E11.42 Type 2 diabetes mellitus with diabetic polyneuropathy; N18.3 Chronic kidney disease, stage 3 (moderate); D50.0 Iron deficiency anemia secondary to blood loss (chronic); J45.909 Unspecified asthma, uncomplicated; D63.8 Anemia in other chronic diseases classified elsewhere; M19.90 Unspecified osteoarthritis, unspecified site; E87.5 Hyperkalemia; F32.9 Major depressive disorder, single episode, unspecified; Z90.49 Acquired absence of other specified parts of digestive tract; Z90.710 Acquired absence of both cervix and uterus; Z87.891 Personal history of nicotine dependence; Z79.82 Long term (current) use of aspirin; Z79.899 Other long term (current) drug therapy; Z88.1 Allergy status to other antibiotic agents; Z88.8 Allergy status to other drugs, medicaments and biological substances; Z86.14 Personal history of Methicillin resistant Staphylococcus aureus infection; Z86.73 Personal history of transient ischemic attack (TIA), and cerebral infarction without residual deficits; Z82.49 Family history of ischemic heart disease and other diseases of the circulatory system; Z83.6 Family history of other diseases of the respiratory system; Z79.4 Long term (current) use of insulin; Z92.21 Personal history of antineoplastic chemotherapy
CPT/HCPCS: 36415; 36600; 71010; 80048; 80053; 81001; 82550; 82553; 82803; 82962; 83880; 84484; 85025; 87040; 93005; 93010; 94640; 94660; 99285; J1650; J1815; J1956; J2920; J3490; J7620

== ENCOUNTER 2016-07-29 23:25 | Inpatient (IN) | payer MEDICARE, OTHER ==
[2016-07-30 00:15] LABS: PROTHROMBIN TIME 12.6 SEC (11.4-15.4)
[2016-07-30 00:23] LABS: ALANINE AMINOTRANSFERASE 33 U/L (9-52); ALBUMIN 3.3 g/dL (3.5-5.0); ALKALINE PHOSPHATASE 79 U/L (38-126); ASPARTATE AMINO TRANSFERASE 45 U/L (14-36); BILIRUBIN,TOTAL 0.3 mg/dL (0.2-1.3); BLOOD UREA NITROGEN 68 mg/dL (7-20); CALCIUM 8.1 mg/dL (8.4-10.2); CHLORIDE 93 mmol/L (98-107); GLUCOSE 221 mg/dL (75-110); POTASSIUM 4.6 mmol/L (3.6-5.0); SODIUM 140.6 mmol/L (137-145); TOTAL PROTEIN 6.1 g/dL (6.3-8.2)
[2016-07-30 00:25] LABS: ANION GAP 8 (5-19)
[2016-07-30 00:27] LABS: HEMOGLOBIN 9.9 g/dL (12.0-15.5); HGB HCT DIFFERENCE -0.3; MEAN CORPUSCULAR VOLUME 94 fl (80-97); RED CELL DISTRIBUTION WIDTH 13.8 % (11.5-14.0); WHITE BLOOD COUNT 14.8 10^3/uL (4.0-10.5)
[2016-07-30 00:31] LABS: CARBON DIOXIDE 40 mmol/L (22-30)
[2016-07-30 00:50] LABS: BASOPHILS % (MANUAL) 0 % (0-2); EOSINOPHILS % (MANUAL) 0 % (0-6); LYMPHOCYTES % (MANUAL) 11 % (13-45); TOTAL CELLS COUNTED 100
[2016-07-30 00:51] LABS: OVALOCYTES SLIGHT; POIKILOCYTOSIS SLIGHT; SCHISTOCYTES SLIGHT; TOXIC GRANULATION SLIGHT
[2016-07-30 00:57] LABS: APPEARANCE,URINE SLIGHTLY-CLOUDY; BILIRUBIN,URINE NEGATIVE (NEGATIVE); GLUCOSE, URINE >=500 mg/dL (NEGATIVE); KETONES,URINE NEGATIVE (NEGATIVE); LEUKOCYTE ESTERASE,URINE NEGATIVE (NEGATIVE); NITRITE,URINE NEGATIVE (NEGATIVE); PROTEIN,URINE >=500 mg/dL (NEGATIVE); URINE SPECIFIC GRAVITY 1.011; UROBILINOGEN,URINE NEGATIVE mg/dL (<2.0)
[2016-07-30 02:13] LABS: VENOUS BLOOD BASE EXCESS 12.4 mmol/L; VENOUS BLOOD HCO3 42.2 mmol/L (20-32); VENOUS BLOOD PH 7.33 (7.30-7.42)
[2016-07-30 02:17] LABS: VENOUS BLOOD PCO2 81.5 mmHg (35-63)
[2016-07-30 02:50] LABS: CREATINE KINASE MB 1.66 ng/mL (<4.55)
[2016-07-30 02:59] LABS: TROPONIN I 0.113 ng/mL
--- NOTE | 2016-07-30 03:13 | ER Document Report ---
ED General - General Time seen by provider: 02:15 Mode of Arrival: Ambulatory Information source: Patient TRAVEL OUTSIDE OF THE [place] IN LAST 30 DAYS: No - HPI Onset: Other - see HPI <JAVIER GOLD - Last Filed: 07/30/16 04:51> <ALBERT BALES - Last Filed: 07/30/16 06:06> - General Chief Complaint: Breathing Difficulty Stated Complaint: DIFFICULTY BREATHING Notes: Patient is a 76 year old female presenting to the emergency department complaining of difficulty breathing and some abdominal bloating. Patient was discharged on from the hospital. Patient's daughter states that the patient is not doing well and that she has to use her walker now. Patient has been very confused which has increased over the past few days. Patient's blood glucose levels have been very irregular. Patient's daughter states that the patient has been started on BiPAP and has not been adjusting well to it. Patient is also not sleeping much. Patient also complains of some abdominal bloating. Patient has chronic constipation and has been taking lactulose. Patient has stage III renal failure and colon cancer. 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 Patient has a low grade fever of 99.1. Patient states her PCP was Dr. Da Silva who recently moved out of the state. (JAVIER GOLD) - Related Data Allergies/Adverse Reactions: lisinopril [From Zestril] Allergy (Severe, Verified 08/29/15 13:16) tongue swelling cefotaxime [From Claforan] Allergy (Verified 06/10/16 17:46) Generalized rash Past Medical History - General Information source: Patient - Social History Smoking Status: Unknown if Ever Smoked Frequency of alcohol use: None Drug Abuse: None Family History: COPD, DM, Hyperlipidemia, Hypertension - Past Medical History Cardiac Medical History: Reports: Hx Congestive Heart Failure, Hx Hypercholesterolemia, Hx Hypertension Pulmonary Medical History: Reports: Hx Asthma, Hx Bronchitis, Hx COPD, Hx Pneumonia, Hx Respiratory Failure Neurological Medical History: Endocrine Medical History: Reports: Hx Diabetes Mellitus Type 2 Renal/ Medical History: Malignancy Medical History: Reports: Hx Colorectal Cancer GI Medical History: Reports: Hx Gastroesophageal Reflux Disease Musculoskeltal Medical History: Reports Hx Arthritis Skin Medical History: Reports Hx MRSA Psychiatric Medical History: Reports: Hx Anxiety, Hx Depression Infectious Medical History: Reports: Hx MRSA Past Surgical History: Reports: Hx Breast Surgery - benign nodule removed, Hx Cardiac Surgery - ablation, Hx Colostomy - Colon Sigmoid resection on 2015 with colostomy, Hx Hysterectomy, Hx Tonsillectomy, Other - Cataract surgery in her right - Immunizations Immunizations up to date: Yes Hx Diphtheria, Pertussis, Tetanus Vaccination: Yes Hx Pneumococcal Vaccination: 04/08/15 <JAVIER GOLD - Last Filed: 07/30/16 04:51> Review of Systems - Review of Systems Constitutional: No symptoms reported EENT: No symptoms reported Cardiovascular: No symptoms reported Respiratory: See HPI, Short of breath Gastrointestinal: See HPI, Nausea, Vomiting Genitourinary: No symptoms reported Female Genitourinary: No symptoms reported Musculoskeletal: No symptoms reported Skin: No symptoms reported Hematologic/Lymphatic: No symptoms reported Neurological/Psychological: See HPI, Confusion -: Yes All other systems reviewed and negative <JAVIER GOLD - Last Filed: 07/30/16 04:51> Physical Exam - Vital signs Interpretation: Tachypneic - General General appearance: Alert In distress: Mild - HEENT Head: Normocephalic, Atraumatic Mucous membranes: Dry - Respiratory Respiratory status: Tachypnea Breath sounds: Normal - Cardiovascular Rhythm: Regular - Extremities General upper extremity: Normal inspection, Normal ROM General lower extremity: Normal inspection, Normal ROM - Neurological Cognition: Confused Orientation: No: Disoriented to person, Disoriented to place [place] Coma Scale Eye Opening: Spontaneous [place] Coma Scale Verbal: Confused [place] Coma Scale Motor: Obeys Commands [place] Coma Scale Total: 14 - Psychological Associated symptoms: Normal affect, Normal mood <ALBERT BALES - Last Filed: 07/30/16 06:06> - Vital signs Vitals: Resp BP Pulse Ox 26 H 165/122 H 96 07/29/16 23:38 07/29/16 23:38 07/29/16 23:38 (JAVIER GOLD) (ALBERT BALES) Course - Laboratory Result Diagrams: 07/29/16 23:50 07/29/16 23:50 <JAVIER GOLD - Last Filed: 07/30/16 04:51> - Laboratory Result Diagrams: 07/29/16 23:50 07/29/16 23:50 - Diagnostic Test Radiology reviewed: Image reviewed, Reports reviewed - EKG Interpretation by Me EKG shows normal: Sinus rhythm Rate: Tachycardia Rhythm: NSR <ALBERT BALES - Last Filed: 07/30/16 06:06> - Re-evaluation Re-evalutation: 07/30/16 05:20 Patient is a 76-year-old female who comes in with confusion. Daughter states that patient has been confuses home. Patient has not been tolerating Cipro. Patient has had difficulty breathing. Improved after DuoNeb. No evidence for PE. Patient will be started on Levaquin for probable pneumonia. P Patient's daughter states that she is unmanageable at home and will need acute rehabilitation. (ALBERT BALES) - Vital Signs Vital signs: Temp Pulse Resp BP Pulse Ox 98.8 F 21 H 177/87 H 96 07/29/16 23:53 07/30/16 05:30 07/30/16 05:01 07/30/16 05:30 (JAVIER GOLD) (ALBERT BALES) - Laboratory Laboratory results interpreted by me: 07/29/16 07/29/16 07/30/16 23:50 23:50 00:35 WBC 14.8 H RBC 3.20 L Hgb 9.9 L Hct 30.0 L Seg Neuts % (Manual) 80 H Lymphocytes % (Manual) 11 L Metamyelocytes % 1 H Abs Neuts (Manual) 12.0 H VBG pCO2 VBG HCO3 Chloride 93 L Carbon Dioxide 40 H* BUN 68 H Creatinine 1.70 H Est GFR ( Amer) 35 L Est GFR (Non-Af Amer) 29 L Glucose 221 H Calcium 8.1 L AST 45 H Creatine Kinase Total Protein 6.1 L Albumin 3.3 L Urine Protein >=500 H Urine Glucose (UA) >=500 H 07/30/16 07/30/16 01:56 01:56 WBC RBC Hgb Hct Seg Neuts % (Manual) Lymphocytes % (Manual) Metamyelocytes % Abs Neuts (Manual) VBG pCO2 81.5 H* VBG HCO3 42.2 H Chloride Carbon Dioxide BUN Creatinine Est GFR ( Amer) Est GFR (Non-Af Amer) Glucose Calcium AST Creatine Kinase 21 L Total Protein Albumin Urine Protein Urine Glucose (UA) (JAVIER GOLD) (ALBERT BALES) Discharge <JAVIER GOLD - Last Filed: 07/30/16 04:51> - Discharge Admitting Provider: Hospitalist Unit Admitted: [facility] <ALBERT BALES - Last Filed: 07/30/16 06:06> - Discharge Clinical Impression: Decompensated COPD with exacerbation (chronic obstructive pulmonary disease) Pneumonia Qualifiers: Pneumonia type: due to unspecified organism Laterality: right Lung location: lower lobe of lung Qualified Code(s): J18.9 - Pneumonia, unspecified organism Condition: Stable Disposition: ADMITTED INPATIENT Scribe Attestation: 07/30/16 06:06 I personally performed the services described in the documentation, reviewed and edited the documentation which was dictated to the scribe in my presence, and it accurately records my words and actions. (ALBERT BALES) Scribe Documentation <JAVIER GOLD - Last Filed: 07/30/16 04:51> <ALBERT BLAES - Last Filed: 07/30/16 06:06> - Scribe Written by Scribe:: JUNO [email or web address] 07/30/16 0519 Acting as scribe for: Dr. Bales (JAVIER GOLD) (ALBERT BALES)
[2016-07-30] MEDS ORDERED: IPRATROPIUM/ALBUTEROL 0.5-2.5 MG/3 ML AMPUL NEB ONE (05:21)
[2016-07-30] MEDS ORDERED: LEVOFLOXACIN 750 MG/D5W RTU 150 ML IV ONE (06:04)
[2016-07-30] MEDS ORDERED: ACETAMINOPHEN 325 MG TABLET PO PRN (08:34)
[2016-07-30] MEDS ORDERED: GLUCAGON,HUMAN RECOMB 1 MG INJ IM PRN (08:37)
[2016-07-30] MEDS ORDERED: DEXTROSE 50%-WATER 25 GM/50 ML DISP.SYRIN IV PRN ×2 (08:37)
[2016-07-30] MEDS ORDERED: DEXTROSE 40% GEL 15 GM TUBE PO PRN ×2 (08:37)
[2016-07-30] MEDS ORDERED: ONDANSETRON HCL INJ/PF 4 MG/2 ML SDV IV PRN (08:39)
[2016-07-30] MEDS ORDERED: HYDRALAZINE HCL INJ/PF 20 MG/1 ML SDV IV PRN (08:39)
--- NOTE | 2016-07-30 09:11 | PDOC H&P ---
History of Present Illness Admission Date/PCP: 07/30/16 06:19 ANUEL SOMMERS, Patient complains of: Shortness of breath History of Present Illness: GARCIA CORBIN is a 76 year old female that was recently discharged from the hospital for COPD exacerbation presents to the hospital where worsening shortness of breath and occasional chills. 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 She is normally followed by Dr. Belcher of pulmonary medicine for this. It is noteworthy that she also has stage III colon cancer that was diagnosed last year for which she sees Dr. Chelsea Pelletier of oncology. She has been undergoing treatment with Xeloda every other week but she and her daughter have decided to discontinue this treatment. Her last dose of this medication was one week ago. Patient has stage III chronic kidney disease for which she has been seen on one occasion by Dr. Mcnally of nephrology. I have discussed patient's care with Dr. Mcnally today and Dr. Mcnally is agreeable to having a PICC line placed given patient's poor IV access issues. Past Medical History Cardiac Medical History: Reports: Congestive Heart Failure, Hyperlipidema, Hypertension Pulmonary Medical History: Reports: Asthma, Bronchitis, Chronic Obstructive Pulmonary Disease (COPD), Respiratory Failure - Chronic oxygen dependent Neurological Medical History: Reports: Ischemic CVA Endocrine Medical History: Reports: Diabetes Mellitus Type 2 Renal/ Medical History: Reports: Chronic Kidney Disease - Stage III Malignancy Medical History: Reports: Colorectal Cancer GI Medical History: Reports: Gastroesophageal Reflux Disease Musculoskeltal Medical History: Reports: Arthritis Psychiatric Medical History: Reports: Depression Hematology: Denies: Anemia, Sickle Cell Disease Infectious Medical History: Reports: Methicillin-Resistant Staph Aureus Past Surgical History Past Surgical History: Reports: Colostomy - Colon Sigmoid resection on 2015 with colostomy, Hysterectomy, Tonsillectomy, Other - Cataract surgery in her right Denies: Amputation Social History Information Source: Patient Lives with: Family Smoking Status: Former Smoker Frequency of Alcohol Use: None Hx Recreational Drug Use: No Drugs: None Hx Prescription Drug Abuse: No - Advance Directive Resuscitation Status: Do Not Resuscitate Surrogate healthcare decision maker:: Daughter-Anna Pat Family History Family History: COPD, DM, Hyperlipidemia, Hypertension Parental Family History Reviewed: Yes Children Family History Reviewed: Yes Sibling(s) Family History Reviewed.: Yes Medication/Allergy Home Medications: Atorvastatin Calcium [Lipitor 20 mg Tablet] 20 mg PO QHS #0 tablet 08/29/15 Ferrous Sulfate [Feosol 325 mg Tablet] 325 mg PO DAILY #0 tablet 08/29/15 Montelukast Sodium [Singulair 10 mg Tablet] 10 mg PO QHS #0 tablet 08/29/15 Venlafaxine HCl [Effexor 75 mg Tablet] 150 mg PO DAILY #0 tablet 08/29/15 Cetirizine HCl [Zyrtec 10 mg Tablet] 10 mg PO DAILY 09/07/15 Albuterol Sulfate [Ventolin 0.083% Neb 2.5 mg/3 mL Ampul] 2.5 mg NEB RTQ4HP PRN #0 vial.neb 09/19/15 Budesonide [Pulmicort Neb 0.5 mg/2 ml Ampul] 0.5 mg NEB RTQ12 #0 ampul.neb 09/18 Furosemide [Lasix 40 mg Tablet] 40 mg PO DAILY #0 tablet 09/19/15 Aspirin 81 mg PO DAILY PRN 06/09/16 Amlodipine Besylate [Norvasc 10 mg Tablet] 10 mg PO DAILY tablet 06/11/16 Fluticasone Propionate [Flonase Nasal [place] 50 Mcg/[place] 16 gm] 2 spray NASL Q12 spray.pump 06/11/16 Allopurinol [Zyloprim] 300 mg PO QHS 06/28/16 Gabapentin [Neurontin 100 mg Capsule] 100 mg PO BID 06/28/16 Hydralazine HCl [Apresoline 50 mg Tablet] 50 mg PO BID 06/28/16 Glimepiride [Amaryl 1 mg Tablet] 2 mg PO ACBRKFST #0 tablet 07/02/16 Clonazepam [Klonopin] 1 mg PO BID 07/23/16 Hydrocodone Bit/Homatropine [Hycodan Syrup 5-1.5 mg/5 ml Ud Cup] 5 ml PO Q4HP PRN #120 ml 07/26/16 Prednisone 10 mg PO DAILY #39 tablet 07/26/16 Allergies/Adverse Reactions: lisinopril [From Zestril] Allergy (Severe, Verified 08/29/15 13:16) tongue swelling cefotaxime [From Claforan] Allergy (Verified 06/10/16 17:46) Generalized rash Review of Systems Constitutional: PRESENT: chills, fatigue, weakness. ABSENT: fever(s), headache( s), weight gain, weight loss Eyes: ABSENT: visual disturbances Ears: ABSENT: hearing changes Cardiovascular: ABSENT: chest pain, dyspnea on exertion, edema, orthropnea, palpitations Respiratory: PRESENT: cough, dyspnea. ABSENT: hemoptysis Gastrointestinal: ABSENT: abdominal pain, constipation, diarrhea, hematemesis, hematochezia, nausea, vomiting Genitourinary: ABSENT: dysuria, hematuria Musculoskeletal: ABSENT: joint swelling Integumentary: ABSENT: rash, wounds Neurological: ABSENT: abnormal gait, abnormal speech, confusion, dizziness, focal weakness, syncope Psychiatric: ABSENT: anxiety, depression, homidical ideation, suicidal ideation Endocrine: ABSENT: cold intolerance, heat intolerance, polydipsia, polyuria Hematologic/Lymphatic: ABSENT: easy bleeding, easy bruising Physical Exam Vital Signs: Temp Pulse Resp BP Pulse Ox 98.8 F 27 H 173/65 H 87 L 07/29/16 23:53 07/30/16 08:00 07/30/16 07:01 07/30/16 08:00 PHYSICAL EXAM: GENERAL: Appears well, no acute distress HEENT: Normocephalic, no scleral icterus, conjunctiva clear, EOEM intact, PERRLA , moist mucous membranes NECK: trachea midline, no thyromegally RESPIRATORY: Faint bilateral wheezes, scattered rhonchi, good air excursion CARDIAC: Regular rate and rhythm, no murmur/george/rub ABDOMEN: Soft, no distension, no tenderness, no guarding, normal bowel sounds, negative Grimm sign RECTAL: deferred : deferred EXTREMITIES: No edema, cyanosis, clubbing MUSCULOSKELETAL: No joint swelling or deformity VASCULAR: normal peripheral pulses NEUROLOGIC: Alert, oriented to person/place/time, normal speech, cranial nerves grossly intact, 5/5 strength in all extremities, tactile sensation intact in all extremities SKIN: Multiple areas of ecchymosis on both arms from prior recent blood draws and IV access sites PSYCHIATRIC: Normal mood, normal affect Results Laboratory Results: Labs- All tests 24 hr 07/29/16 07/29/16 07/29/16 23:50 23:50 23:50 WBC 14.8 H RBC 3.20 L Hgb 9.9 L Hct 30.0 L MCV 94 MCH 31.0 MCHC 33.0 RDW 13.8 Plt Count 302 Total Counted 100 Seg Neutrophils % Not Reportable Seg Neuts % (Manual) 80 H Lymphocytes % Not Reportable Lymphocytes % (Manual) 11 L Monocytes % Not Reportable Monocytes % (Manual) 8 Eosinophils % Not Reportable Eosinophils % (Manual) 0 Basophils % Not Reportable Basophils % (Manual) 0 Metamyelocytes % 1 H Absolute Neutrophils Not Reportable Abs Neuts (Manual) 12.0 H Absolute Lymphocytes Not Reportable Abs Lymphs (Manual) 1.6 Absolute Monocytes Not Reportable Abs Monocytes (Manual) 1.2 Absolute Eosinophils Not Reportable Absolute Eos (Manual) 0.0 Absolute Basophils Not Reportable Abs Basophils (Manual) 0.0 Toxic Granulation SLIGHT Large Platelets PRESENT Platelet Comment ADEQUATE Poikilocytosis SLIGHT Ovalocytes SLIGHT Schistocytes SLIGHT PT 12.6 INR 0.91 VBG pH VBG pCO2 VBG HCO3 VBG Base Excess Sodium 140.6 Potassium 4.6 Chloride 93 L Carbon Dioxide 40 H* Anion Gap 8 BUN 68 H Creatinine 1.70 H Est GFR ( Amer) 35 L Est GFR (Non-Af Amer) 29 L Glucose 221 H POC Glucose Lactic Acid Calcium 8.1 L Total Bilirubin 0.3 Direct Bilirubin 0.0 AST 45 H ALT 33 Alkaline Phosphatase 79 Creatine Kinase CK-MB (CK-2) Troponin I Total Protein 6.1 L Albumin 3.3 L Urine Color Urine Appearance Urine pH Ur Specific [place] Urine Protein Urine Glucose (UA) Urine Ketones Urine Blood Urine Nitrite Urine Bilirubin Urine Urobilinogen Ur Leukocyte Esterase Urine WBC (Auto) Urine RBC (Auto) Urine Bacteria (Auto) Urine Ascorbic Acid 07/30/16 07/30/16 07/30/16 00:35 01:56 01:56 WBC RBC Hgb Hct MCV MCH MCHC RDW Plt Count Total Counted Seg Neutrophils % Seg Neuts % (Manual) Lymphocytes % Lymphocytes % (Manual) Monocytes % Monocytes % (Manual) Eosinophils % Eosinophils % (Manual) Basophils % Basophils % (Manual) Metamyelocytes % Absolute Neutrophils Abs Neuts (Manual) Absolute Lymphocytes Abs Lymphs (Manual) Absolute Monocytes Abs Monocytes (Manual) Absolute Eosinophils Absolute Eos (Manual) Absolute Basophils Abs Basophils (Manual) Toxic Granulation Large Platelets Platelet Comment Poikilocytosis Ovalocytes Schistocytes PT INR VBG pH 7.33 VBG pCO2 81.5 H* VBG HCO3 42.2 H VBG Base Excess 12.4 Sodium Potassium Chloride Carbon Dioxide Anion Gap BUN Creatinine Est GFR ( Amer) Est GFR (Non-Af Amer) Glucose POC Glucose Lactic Acid 0.9 Calcium Total Bilirubin Direct Bilirubin AST ALT Alkaline Phosphatase Creatine Kinase CK-MB (CK-2) Troponin I Total Protein Albumin Urine Color YELLOW Urine Appearance SLIGHTLY-CLOUDY Urine pH 6.0 Ur Specific [place] 1.011 Urine Protein >=500 H Urine Glucose (UA) >=500 H Urine Ketones NEGATIVE Urine Blood NEGATIVE Urine Nitrite NEGATIVE Urine Bilirubin NEGATIVE Urine Urobilinogen NEGATIVE Ur Leukocyte Esterase NEGATIVE Urine WBC (Auto) 1 Urine RBC (Auto) 2 Urine Bacteria (Auto) 1+ Urine Ascorbic Acid NEGATIVE 07/30/16 07/30/16 07/30/16 01:56 01:56 03:46 WBC RBC Hgb Hct MCV MCH MCHC RDW Plt Count Total Counted Seg Neutrophils % Seg Neuts % (Manual) Lymphocytes % Lymphocytes % (Manual) Monocytes % Monocytes % (Manual) Eosinophils % Eosinophils % (Manual) Basophils % Basophils % (Manual) Metamyelocytes % Absolute Neutrophils Abs Neuts (Manual) Absolute Lymphocytes Abs Lymphs (Manual) Absolute Monocytes Abs Monocytes (Manual) Absolute Eosinophils Absolute Eos (Manual) Absolute Basophils Abs Basophils (Manual) Toxic Granulation Large Platelets Platelet Comment Poikilocytosis Ovalocytes Schistocytes PT INR VBG pH VBG pCO2 VBG HCO3 VBG Base Excess Sodium Potassium Chloride Carbon Dioxide Anion Gap BUN Creatinine Est GFR ( Amer) Est GFR (Non-Af Amer) Glucose POC Glucose Lactic Acid Calcium Total Bilirubin Direct Bilirubin AST ALT Alkaline Phosphatase Creatine Kinase 21 L CK-MB (CK-2) 1.66 Troponin I 0.113 0.118 Total Protein Albumin Urine Color Urine Appearance Urine pH Ur Specific [place] Urine Protein Urine Glucose (UA) Urine Ketones Urine Blood Urine Nitrite Urine Bilirubin Urine Urobilinogen Ur Leukocyte Esterase Urine WBC (Auto) Urine RBC (Auto) Urine Bacteria (Auto) Urine Ascorbic Acid 07/30/16 05:39 WBC RBC Hgb Hct MCV MCH MCHC RDW Plt Count Total Counted Seg Neutrophils % Seg Neuts % (Manual) Lymphocytes % Lymphocytes % (Manual) Monocytes % Monocytes % (Manual) Eosinophils % Eosinophils % (Manual) Basophils % Basophils % (Manual) Metamyelocytes % Absolute Neutrophils Abs Neuts (Manual) Absolute Lymphocytes Abs Lymphs (Manual) Absolute Monocytes Abs Monocytes (Manual) Absolute Eosinophils Absolute Eos (Manual) Absolute Basophils Abs Basophils (Manual) Toxic Granulation Large Platelets Platelet Comment Poikilocytosis Ovalocytes Schistocytes PT INR VBG pH VBG pCO2 VBG HCO3 VBG Base Excess Sodium Potassium Chloride Carbon Dioxide Anion Gap BUN Creatinine Est GFR ( Amer) Est GFR (Non-Af Amer) Glucose POC Glucose 87 Lactic Acid Calcium Total Bilirubin Direct Bilirubin AST ALT Alkaline Phosphatase Creatine Kinase CK-MB (CK-2) Troponin I Total Protein Albumin Urine Color Urine Appearance Urine pH Ur Specific [place] Urine Protein Urine Glucose (UA) Urine Ketones Urine Blood Urine Nitrite Urine Bilirubin Urine Urobilinogen Ur Leukocyte Esterase Urine WBC (Auto) Urine RBC (Auto) Urine Bacteria (Auto) Urine Ascorbic Acid EKG Comments: Sinus tachycardia, LVH, no acute ST elevation/depression Impressions: Chest X-Ray 07/29/16 23:53 IMPRESSION: New parenchymal opacity at the right lung base. Mild vascular congestion. Lung Scan-VQ NM 07/30/16 01:20 IMPRESSION: Low probability pulmonary embolus. Assessment & Plan - Diagnosis (1) Acute and chronic respiratory failure with hypercapnia Is this a current diagnosis for this admission?: YesPlan: Patient has chronic oxygen dependent COPD. (2) Decompensated COPD with exacerbation (chronic obstructive pulmonary disease) Is this a current diagnosis for this admission?: YesPlan: Start IV Solu-Medrol. Continue Pulmicort and albuterol. (3) Pneumonia Qualifiers: Pneumonia type: due to unspecified organism Laterality: right Lung location: lower lobe of lung Qualified Code(s): J18.9 - Pneumonia, unspecified organism Is this a current diagnosis for this admission?: YesPlan: Patient has healthcare associated pneumonia with high probability of gram- negative organism. I'm concerned that she has recently been on Xeloda for colon cancer. I will start patient on aztreonam and Levaquin pending further blood and sputum culture. (4) Anemia Qualifiers: Anemia type: iron deficiency Iron deficiency anemia type: chronic blood loss Qualified Code(s): D50.0 - Iron deficiency anemia secondary to blood loss (chronic) Is this a current diagnosis for this admission?: Yes (5) CHF (congestive heart failure) Qualifiers: Congestive heart failure type: diastolic Congestive heart failure chronicity: unspecified congestive heart failure chronicity Qualified Code(s): I50.30 - Unspecified diastolic (congestive) heart failure Is this a current diagnosis for this admission?: YesPlan: EF unknown. Check echocardiogram. Continue Lasix. Consider beta jackelin when respiratory status stable. No WILLIE inhibitor secondary to allergy. No ARB secondary to CKD3. (6) Chronic renal failure, stage 3 (moderate) Is this a current diagnosis for this admission?: YesPlan: At baseline. Follow up with Dr. Mcnally outpatient. (7) Diabetes mellitus Qualifiers: Diabetes mellitus type: type 2 Diabetes mellitus complication status: with kidney complications Diabetes mellitus complication detail: with chronic kidney disease Diabetes mellitus director long term care insulin use: without director long term care use Chronic kidney disease stage: stage 3 (moderate) Qualified Code(s): E11.22 - Type 2 diabetes mellitus with diabetic chronic kidney disease; N18.1 - Chronic kidney disease, stage 1; Z79.4 - [facility] ( current) use of insulin Is this a current diagnosis for this admission?: YesPlan: Amaryl. SSI. (8) Colon cancer Qualifiers: Colon location: sigmoid Qualified Code(s): C18.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 Is this a current diagnosis for this admission?: YesPlan: Follow up with Dr. Pelletier after discharge. (9) DNR (do not resuscitate) Is this a current diagnosis for this admission?: Yes - Time Critical Time spent with patient: 35 or more minutes - Inpatient Certification Based on my medical assessment, after consideration of the patient's comorbidities, presenting symptoms, or acuity I expect that the services needed warrant INPATIENT care.: Yes I certify that my determination is in accordance with my understanding of Medicare's requirements for reasonable and necessary INPATIENT services [42 CFR 412.3e].: Yes Medical Necessity: Need Close Monitoring Due to Risk of Patient Decompensation, Need For Continuous Telemetry Monitoring, Need for IV Antibiotics
--- NOTE | 2016-07-30 09:43 | EKG REPORT ---
SEVERITY:- ABNORMAL ECG - SINUS TACHYCARDIA ATRIAL PREMATURE COMPLEX SINUS PAUSE/ARREST WITH ATRIAL ESCAPE PROBABLE LEFT VENTRICULAR HYPERTROPHY : Confirmed by: Marleny Lomeli MD 30-Jul-2016 09:41:08
[2016-07-30] MEDS ORDERED: GABAPENTIN 100 MG CAPSULE PO SCH (10:00)
[2016-07-30] MEDS: METHYLPREDNISOLONE INJ 40 MG/1 ML SDV IV SCH ×2 (10:00→21:40)
[2016-07-30] MEDS: FLUTICASONE NASAL SPRAY 50 MCG/SPRY 120 SPRAY/16 GM NASL SCH ×2 (10:00→21:48)
[2016-07-30] MEDS: LEVOFLOXACIN 500 MG/D5W RTU 100 ML IV SCH (10:00)
[2016-07-30] MEDS: VENLAFAXINE HCL 75 MG TABLET PO SCH (10:06)
[2016-07-30] MEDS: FERROUS SULFATE 325 MG TABLET PO SCH (10:07)
[2016-07-30] MEDS: HYDRALAZINE HCL 50 MG TABLET PO SCH ×2 (10:08→21:41)
[2016-07-30] MEDS: CLONAZEPAM 1 MG TABLET PO SCH ×2 (10:09→17:43)
[2016-07-30] MEDS: AMLODIPINE BESYLATE 10 MG TABLET PO SCH (10:09)
[2016-07-30] MEDS: ASPIRIN 81 MG TABLET, CHEWABLE PO SCH (10:09)
[2016-07-30] MEDS: FUROSEMIDE 40 MG TABLET PO SCH (10:24)
[2016-07-30] MEDS: CETIRIZINE 10 MG TABLET PO SCH (10:24)
[2016-07-30] MEDS: FAMOTIDINE INJ/PF 20 MG/2 ML SDV IV SCH ×2 (10:25→21:40)
[2016-07-30] MEDS: GABAPENTIN 100 MG CAPSULE PO SCH ×2 (11:17→21:40)
[2016-07-30] MEDS ORDERED: PREDNISONE 20 MG TABLET PO ONE (11:45)
[2016-07-30] MEDS ORDERED: AZTREONAM 1 GM in DEXTROSE 5%-WATER 50 ML IV SCH (14:00)
[2016-07-30] MEDS: AZTREONAM 1 GM in DEXTROSE 5%-WATER 50 ML IV SCH (17:40)
[2016-07-30] MEDS: HEPARIN SOD (PORCINE) 5,000 UNIT/ML 1 ML SYRINGE SUBCUT SCH ×2 (17:43→21:49)
[2016-07-30] MEDS: 1/2 NORMAL SALINE 1,000 ML IV PRN (17:44)
--- NOTE | 2016-07-30 19:13 | XCELERA REPORT ---
[address] [address] Transthoracic Echocardiogram Report Name: GARCIA CORBIN Age: 76 yrs Gender: Female : 1940 Patient Status: Inpatient Patient Location: [id number]\S\329\S\A Study Date: 07/30/2016 03:45 PM Height: 66 in Weight: 249 lb BSA: 2.2 m2 Procedure: A complete two-dimensional transthoracic echocardiogram was performed (2D, M-mode, spectral and color flow Doppler). The study was technically difficult with many images being suboptimal in quality. Reason For Study: pulm edema Ordering Physician: PLACIDO DUQUE Performed By: Shara Strickland Interpretation Summary Left ventricular systolic function is low normal. There is borderline concentric left ventricular hypertrophy. The left ventricle is grossly normal size. Doppler measurements suggest pseudonormalized left ventricular relaxation, which is associated with grade II/IV or mild to moderate diastolic dysfunction Wall motion cannot be accurately commented on, but no definite regional wall motion abnormalities noted. Borderline right ventricular enlargement. The right ventricular systolic function is normal. The right ventricle appears to be hypertrophied The left atrium is moderately dilated. The right atrium is mildly dilated. There is a mild amount of mitral regurgitation There is no mitral valve stenosis. There is a trace amount of aortic regurgitation There is no aortic valve stenosis There is a mild amount of tricuspid regurgitation Right ventricular systolic pressure is estimated to be elevated at 50- 60mmHg. There is moderate pulmonary hypertension by echo The aortic root is not well visualized. The inferior vena cava appeared normal and decreased > 50% with respiration (RAP 5-10 mmHg) There is no pericardial effusion. MMode/2D Measurements \T\ Calculations RVDd: 3.1 cm LVIDd: 5.5 cm FS: 37.0 % Ao root diam: 2.4 cm IVSd: 1.0 cm LVIDs: 3.5 cm EDV(Teich): 147.1 ml LVPWd: 0.95 cm ESV(Teich): 49.6 ml Ao root area: 4.5 cm2 EF(Teich): 66.3 % LA dimension: 4.5 cm Doppler Measurements \T\ Calculations MV E max vera: MV P1/2t max vera: Ao V2 max: LV V1 max P.5 cm/sec 141.5 cm/sec 219.4 cm/sec 5.4 mmHg MV A max vera: MV P1/2t: 56.1 msec Ao max PG: LV V1 max: 142.0 cm/sec 19.2 mmHg 116.3 cm/sec MV E/A: 1.00 MVA(P1/2t): 3.9 cm2 MV dec slope: 738.3 cm/sec2 MV dec time: 0.19 sec PA V2 max: TR max vera: 137.2 cm/sec 368.0 cm/sec PA max PG: TR max P.2 mmHg 7.5 mmHg Left Ventricle The left ventricle is grossly normal size. There is borderline concentric left ventricular hypertrophy. Left ventricular systolic function is low normal. Doppler measurements suggest pseudonormalized left ventricular relaxation, which is associated with grade II/IV or mild to moderate diastolic dysfunction. Wall motion cannot be accurately commented on, but no definite regional wall motion abnormalities noted. Right Ventricle Borderline right ventricular enlargement. The right ventricle appears to be hypertrophied. The right ventricular systolic function is normal. Atria The right atrium is mildly dilated. The left atrium is moderately dilated. Interarterial septum not well visualized and not well dopplered. Cannot comment on ASD/PFO presence. Mitral Valve The mitral valve leaflets are sclerotic, but show no functional abnormalities. There is no mitral valve stenosis. There is a mild amount of mitral regurgitation. Aortic Valve The aortic valve is not well visualized secondary to technical limitations. There is no aortic valve stenosis. There is a trace amount of aortic regurgitation. Tricuspid Valve The tricuspid valve is not well visualized, but is grossly normal. There is no tricuspid stenosis. There is a mild amount of tricuspid regurgitation. Right ventricular systolic pressure is estimated to be elevated at 50- 60mmHg. There is moderate pulmonary hypertension by echo. Pulmonic Valve The pulmonic valve is not well visualized. Great Vessels The aortic root is not well visualized. The inferior vena cava appeared normal and decreased > 50% with respiration (RAP 5-10 mmHg). Effusions There is no pericardial effusion. : PLACIDO DUQUE > Laney Lee
[2016-07-30] MEDS: ALBUTEROL SULFATE 0.083% NEB 2.5 MG/3 ML AMPUL NEB PRN (20:06)
[2016-07-30] MEDS: BUDESONIDE NEB 0.5 MG/2 ML AMPUL NEB SCH (20:06)
[2016-07-30] MEDS: MONTELUKAST SODIUM 10 MG TABLET PO SCH (21:40)
[2016-07-30] MEDS: ATORVASTATIN CALCIUM 20 MG TABLET PO SCH (21:40)
[2016-07-30] MEDS: INSULIN LISPRO 100 UNIT/ML 3 ML VIAL SUBCUT PRN (21:57)
[2016-07-30] MEDS: GUAIFENESIN SYRP 200 MG/10 ML UDC PO PRN (22:21)
[2016-07-31] MEDS: AZTREONAM 1 GM in DEXTROSE 5%-WATER 50 ML IV SCH ×3 (02:34→16:56)
[2016-07-31] MEDS: GUAIFENESIN SYRP 200 MG/10 ML UDC PO PRN (04:27)
[2016-07-31 05:55] LABS: ANION GAP 7 (5-19); BLOOD UREA NITROGEN 68 mg/dL (7-20); CALCIUM 8.4 mg/dL (8.4-10.2); CARBON DIOXIDE 37 mmol/L (22-30); CHLORIDE 95 mmol/L (98-107); CREATININE RESULT 1.82 mg/dL (0.52-1.25); GLUCOSE 187 mg/dL (75-110); POTASSIUM 5.3 mmol/L (3.6-5.0); SODIUM 139.1 mmol/L (137-145)
[2016-07-31 06:14] LABS: HEMATOCRIT 30.5 % (36.0-47.0); HEMOGLOBIN 9.9 g/dL (12.0-15.5); HGB HCT DIFFERENCE -0.8; MEAN CORPUSCULAR HEMOGLOBIN 30.7 pg (27.0-33.4); MEAN CORPUSCULAR HGB CONC 32.4 g/dL (32.0-36.0); MEAN CORPUSCULAR VOLUME 95 fl (80-97); RED BLOOD COUNT 3.22 10^6/uL (3.72-5.28)
[2016-07-31] MEDS: HEPARIN SOD (PORCINE) 5,000 UNIT/ML 1 ML SYRINGE SUBCUT SCH ×3 (06:45→21:54)
[2016-07-31 06:53] LABS: BASOPHILS % (MANUAL) 0 % (0-2); EOSINOPHILS % (MANUAL) 0 % (0-6); LYMPHOCYTES % (MANUAL) 10 % (13-45); TOTAL CELLS COUNTED 100
[2016-07-31 06:58] LABS: ANISOCYTOSIS SLIGHT; POLYCHROMASIA SLIGHT; TOXIC GRANULATION 1+
[2016-07-31] MEDS: BUDESONIDE NEB 0.5 MG/2 ML AMPUL NEB SCH ×2 (08:47→20:12)
[2016-07-31] MEDS: ALBUTEROL SULFATE 0.083% NEB 2.5 MG/3 ML AMPUL NEB PRN (08:47)
[2016-07-31] MEDS: CLONAZEPAM 1 MG TABLET PO SCH ×2 (10:07→16:56)
[2016-07-31] MEDS: VENLAFAXINE HCL 75 MG TABLET PO SCH (10:07)
[2016-07-31] MEDS: CETIRIZINE 10 MG TABLET PO SCH (10:08)
[2016-07-31] MEDS: HYDRALAZINE HCL 50 MG TABLET PO SCH ×2 (10:08→21:53)
[2016-07-31] MEDS: PREDNISONE 20 MG TABLET PO SCH (10:10)
[2016-07-31] MEDS: GLIMEPIRIDE 1 MG TABLET PO SCH (10:10)
[2016-07-31] MEDS: ASPIRIN 81 MG TABLET, CHEWABLE PO SCH (10:11)
[2016-07-31] MEDS: FAMOTIDINE 20 MG TABLET PO SCH ×2 (10:11→21:53)
[2016-07-31] MEDS: GABAPENTIN 100 MG CAPSULE PO SCH ×2 (10:11→21:54)
[2016-07-31] MEDS: LEVOFLOXACIN 500 MG/D5W RTU 100 ML IV SCH (10:12)
[2016-07-31] MEDS: AMLODIPINE BESYLATE 10 MG TABLET PO SCH (10:12)
[2016-07-31] MEDS: FUROSEMIDE 40 MG TABLET PO SCH (10:12)
[2016-07-31] MEDS: FERROUS SULFATE 325 MG TABLET PO SCH (10:12)
[2016-07-31] MEDS: FLUTICASONE NASAL SPRAY 50 MCG/SPRY 120 SPRAY/16 GM NASL SCH ×2 (10:14→21:55)
[2016-07-31] MEDS: 1/2 NORMAL SALINE 1,000 ML IV PRN (10:15)
[2016-07-31] MEDS ORDERED: HYDROCODONE BIT/HOMATROPINE SYRUP 5 ML UDCUP PO PRN (11:21)
--- NOTE | 2016-07-31 17:53 | PDOC PROGRESS REPORT ---
Subjective Progress Note for:: 07/31/16 Subjective:: Patient was seen and evaluated while she was sitting in bedside chair today. She has no particular complaints. Her shortness of breath is much improved. She denies fever, chills, headache, chest pain, focal weakness/numbness. Physical Exam Vital Signs: Temp Pulse Resp BP Pulse Ox 98.1 F 87 22 H 158/71 H 97 07/31/16 15:29 07/31/16 15:29 07/31/16 15:29 07/31/16 15:29 07/31/16 15:29 Intake & Output 07/30/16 07/31/16 08/01/16 06:59 06:59 06:59 Intake Total 2442 762 Output Total 1400 Balance 1042 762 Weight 105.1 kg GENERAL: No acute distress HEENT: Conjunctiva clear, nonicteric, moist mucous membranes, no JVD, midline trachea RESPIRATORY: Clear to auscultation bilaterally, no wheezes, no rhonchi CARDIAC: Regular rate and rhythm, no murmurs/gallops/rubs ABDOMEN: Soft, nondistended, nontender, positive bowel sounds, no rebound, no guarding EXTREMETIES: Pitting edema and bilateral lower extremity NEUROLOGIC: Alert, oriented to person/place/time, CN's grossly intact, no focal deficits SKIN: No rash, wounds PSYCH: Normal mood, normal affect Results Laboratory Results: 07/31/16 05:16 07/31/16 05:16 07/31/16 07/31/16 05:16 05:16 WBC 13.0 H RBC 3.22 L Hgb 9.9 L Hct 30.5 L MCV 95 MCH 30.7 MCHC 32.4 RDW 14.0 Plt Count 248 Seg Neutrophils % Not Reportable Lymphocytes % Not Reportable Monocytes % Not Reportable Eosinophils % Not Reportable Basophils % Not Reportable Absolute Neutrophils Not Reportable Absolute Lymphocytes Not Reportable Absolute Monocytes Not Reportable Absolute Eosinophils Not Reportable Absolute Basophils Not Reportable Sodium 139.1 Potassium 5.3 H Chloride 95 L Carbon Dioxide 37 H Anion Gap 7 BUN 68 H Creatinine 1.82 H Est GFR ( Amer) 33 L Est GFR (Non-Af Amer) 27 L Glucose 187 H Calcium 8.4 07/30/16 10:58 NT-Pro-B Natriuret Pep 2210 H Impressions: Guidance Fluoroscopy 07/30/16 00:00 IMPRESSION: SUCCESSFUL PLACEMENT OF A 5 FR DUAL LUMEN 42 CM PICC IN THE left basilic VEIN. Interventional Vascular Procedure 07/30/16 00:00 IMPRESSION: SUCCESSFUL PLACEMENT OF A 5 FR DUAL LUMEN 42 CM PICC IN THE left basilic VEIN. PICC Line Insertion 07/30/16 00:00 IMPRESSION: SUCCESSFUL PLACEMENT OF A 5 FR DUAL LUMEN 42 CM PICC IN THE left basilic VEIN. Lung Scan-VQ NM 07/30/16 01:20 IMPRESSION: Low probability pulmonary embolus. Chest X-Ray 07/31/16 06:00 IMPRESSION: Mild bibasilar airspace disease likely atelectasis. Pneumonia could not be excluded. Mild cardiomegaly and pulmonary vascular prominence PICC line tip in the superior vena cava Assessment & Plan - Diagnosis (1) Acute and chronic respiratory failure with hypercapnia Is this a current diagnosis for this admission?: YesPlan: Patient has chronic oxygen dependent COPD. (2) Decompensated COPD with exacerbation (chronic obstructive pulmonary disease) Is this a current diagnosis for this admission?: YesPlan: Discontinue Solu-Medrol. Start prednisone 40 mg daily. Continue Pulmicort and albuterol. (3) Pneumonia Qualifiers: Pneumonia type: due to unspecified organism Laterality: right Lung location: lower lobe of lung Qualified Code(s): J18.9 - Pneumonia, unspecified organism Is this a current diagnosis for this admission?: YesPlan: Patient has healthcare associated pneumonia with high probability of gram- negative organism. I'm concerned that she has recently been on Xeloda for colon cancer. Continue aztreonam and Levaquin pending further blood and sputum culture. (4) Anemia Qualifiers: Anemia type: iron deficiency Iron deficiency anemia type: chronic blood loss Qualified Code(s): D50.0 - Iron deficiency anemia secondary to blood loss (chronic) Is this a current diagnosis for this admission?: Yes (5) CHF (congestive heart failure) Qualifiers: Congestive heart failure type: diastolic Congestive heart failure chronicity: unspecified congestive heart failure chronicity Qualified Code(s): I50.30 - Unspecified diastolic (congestive) heart failure Is this a current diagnosis for this admission?: YesPlan: Echocardiogram shows normal EF, a 2/4 diastolic dysfunction, moderate pulmonary hypertension. Continue Lasix. Start Coreg 6.25 mg twice daily. No WILLIE inhibitor secondary to allergy. No ARB secondary to CKD3. (6) Chronic renal failure, stage 3 (moderate) Is this a current diagnosis for this admission?: YesPlan: At baseline. Follow up with Dr. Mcnally outpatient. 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 SSI. Glucose control should improve with de-escalation of steroids. (8) Colon cancer Qualifiers: Colon location: sigmoid Qualified Code(s): C18.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 Is this a current diagnosis for this admission?: YesPlan: Follow up with Dr. Pelletier after discharge. (9) DNR (do not resuscitate) Is this a current diagnosis for this admission?: Yes - Time Anticipated discharge: Home with Homehealth Disposition: We will plan on resuming [facility]/PT on discharge.
[2016-07-31] MEDS: ATORVASTATIN CALCIUM 20 MG TABLET PO SCH (21:53)
[2016-07-31] MEDS: MONTELUKAST SODIUM 10 MG TABLET PO SCH (21:53)
[2016-07-31] MEDS: CARVEDILOL 6.25 MG TABLET PO SCH (21:54)
[2016-07-31] MEDS: INSULIN LISPRO 100 UNIT/ML 3 ML VIAL SUBCUT PRN (22:06)
[2016-08-01] MEDS: AZTREONAM 1 GM in DEXTROSE 5%-WATER 50 ML IV SCH ×2 (01:33→10:42)
[2016-08-01 05:12] LABS: BLOOD UREA NITROGEN 58 mg/dL (7-20); CALCIUM 8.6 mg/dL (8.4-10.2); CHLORIDE 98 mmol/L (98-107); CREATININE RESULT 1.71 mg/dL (0.52-1.25); GLUCOSE 69 mg/dL (75-110); POTASSIUM 4.5 mmol/L (3.6-5.0); SODIUM 142.9 mmol/L (137-145)
[2016-08-01] MEDS: HEPARIN SOD (PORCINE) 5,000 UNIT/ML 1 ML SYRINGE SUBCUT SCH ×3 (05:21→22:17)
[2016-08-01 05:23] LABS: ANION GAP 3 (5-19); CARBON DIOXIDE 42 mmol/L (22-30)
[2016-08-01 06:56] LABS: BLOOD UREA NITROGEN 56 mg/dL (7-20); CALCIUM 8.9 mg/dL (8.4-10.2); CHLORIDE 97 mmol/L (98-107); CREATININE RESULT 1.75 mg/dL (0.52-1.25); GLUCOSE 66 mg/dL (75-110); POTASSIUM 4.6 mmol/L (3.6-5.0); SODIUM 144.1 mmol/L (137-145)
[2016-08-01 07:14] LABS: ANION GAP 2 (5-19); CARBON DIOXIDE 45 mmol/L (22-30)
[2016-08-01 07:22] LABS: HEMATOCRIT 30.6 % (36.0-47.0); HEMOGLOBIN 9.7 g/dL (12.0-15.5); HGB HCT DIFFERENCE -1.5; MEAN CORPUSCULAR HEMOGLOBIN 30.1 pg (27.0-33.4); MEAN CORPUSCULAR HGB CONC 31.6 g/dL (32.0-36.0); MEAN CORPUSCULAR VOLUME 95 fl (80-97); RED BLOOD COUNT 3.21 10^6/uL (3.72-5.28); RED CELL DISTRIBUTION WIDTH 13.8 % (11.5-14.0); WHITE BLOOD COUNT 13.9 10^3/uL (4.0-10.5)
[2016-08-01 07:54] LABS: BAND NEUTROPHILS % (MANUAL) 2 % (3-5); BASOPHILS % (MANUAL) 0 % (0-2); EOSINOPHILS % (MANUAL) 1 % (0-6); LYMPHOCYTES % (MANUAL) 22 % (13-45); TOTAL CELLS COUNTED 100
[2016-08-01 07:55] LABS: RBC MORPHOLOGY COMMENT NORMO-CYTIC/CHROMIC; TOXIC GRANULATION SLIGHT
[2016-08-01] MEDS: BUDESONIDE NEB 0.5 MG/2 ML AMPUL NEB SCH ×2 (08:51→20:58)
[2016-08-01] MEDS: ALBUTEROL SULFATE 0.083% NEB 2.5 MG/3 ML AMPUL NEB PRN ×2 (08:51→12:22)
[2016-08-01] MEDS: LEVOFLOXACIN 500 MG/D5W RTU 100 ML IV SCH (10:39)
[2016-08-01] MEDS: CLONAZEPAM 1 MG TABLET PO SCH ×2 (10:40→17:52)
[2016-08-01] MEDS: AMLODIPINE BESYLATE 10 MG TABLET PO SCH (10:40)
[2016-08-01] MEDS: CARVEDILOL 6.25 MG TABLET PO SCH ×2 (10:40→22:17)
[2016-08-01] MEDS: CETIRIZINE 10 MG TABLET PO SCH (10:40)
[2016-08-01] MEDS: FERROUS SULFATE 325 MG TABLET PO SCH (10:40)
[2016-08-01] MEDS: HYDRALAZINE HCL 50 MG TABLET PO SCH ×2 (10:40→22:17)
[2016-08-01] MEDS: GLIMEPIRIDE 1 MG TABLET PO SCH (10:41)
[2016-08-01] MEDS: FAMOTIDINE 20 MG TABLET PO SCH (10:41)
[2016-08-01] MEDS: FUROSEMIDE 40 MG TABLET PO SCH (10:41)
[2016-08-01] MEDS: ASPIRIN 81 MG TABLET, CHEWABLE PO SCH (10:41)
[2016-08-01] MEDS: GABAPENTIN 100 MG CAPSULE PO SCH ×2 (10:41→22:17)
[2016-08-01] MEDS: VENLAFAXINE HCL 75 MG TABLET PO SCH (10:42)
[2016-08-01] MEDS: PREDNISONE 20 MG TABLET PO SCH (10:42)
[2016-08-01] MEDS: FLUTICASONE NASAL SPRAY 50 MCG/SPRY 120 SPRAY/16 GM NASL SCH ×2 (10:43→22:20)
[2016-08-01] MEDS: GUAIFENESIN SYRP 200 MG/10 ML UDC PO PRN ×2 (10:44→14:37)
[2016-08-01] MEDS ORDERED: MAG HYDROX/AL HYDROX/SIMETH SUSP 30 ML UDCUP PO PRN (13:11)
[2016-08-01] MEDS ORDERED: LANSOPRAZOLE 30 MG TAB.RAP.DR PO ONE (14:00)
[2016-08-01] MEDS: INSULIN LISPRO 100 UNIT/ML 3 ML VIAL SUBCUT PRN ×2 (17:51→22:17)
[2016-08-01] MEDS: HYDROCODONE BIT/HOMATROPINE 5-1.5 MG TABLET PO PRN (17:52)
--- NOTE | 2016-08-01 18:03 | PDOC PROGRESS REPORT ---
Subjective Progress Note for:: 08/01/16 Subjective:: Patient was seen and evaluated while she was sitting in bedside chair today. She has no particular complaints. Her shortness of breath is much improved. She does complain of acid reflux symptoms. She takes antacids on occasion as an outpatient. She thinks current steroids may be aggravating her condition. She denies fever, chills, headache, chest pain, focal weakness/numbness. Physical Exam Vital Signs: Temp Pulse Resp BP Pulse Ox 98.2 F 75 18 129/61 H 97 08/01/16 12:06 08/01/16 14:00 08/01/16 12:22 08/01/16 12:06 08/01/16 12:06 Intake & Output 07/31/16 08/01/16 08/02/16 06:59 06:59 06:59 Intake Total 2442 2526 458 Output Total 1400 4400 350 Balance 1042 -1874 108 Weight 105.1 kg 102.6 kg GENERAL: No acute distress HEENT: Conjunctiva clear, nonicteric, moist mucous membranes, no JVD, midline trachea RESPIRATORY: Clear to auscultation bilaterally, no wheezes, no rhonchi CARDIAC: Regular rate and rhythm, no murmurs/gallops/rubs ABDOMEN: Soft, nondistended, nontender, positive bowel sounds, no rebound, no guarding EXTREMETIES: Trace Pitting edema and bilateral lower extremity NEUROLOGIC: Alert, oriented to person/place/time, CN's grossly intact, no focal deficits SKIN: No rash, wounds PSYCH: Normal mood, normal affect Results Laboratory Results: 08/01/16 06:23 08/01/16 06:23 08/01/16 08/01/16 08/01/16 04:45 04:45 06:23 WBC Cancelled 13.9 H RBC Cancelled 3.21 L Hgb Cancelled 9.7 L Hct Cancelled 30.6 L MCV Cancelled 95 MCH Cancelled 30.1 MCHC Cancelled 31.6 L RDW Cancelled 13.8 Plt Count Cancelled 246 Seg Neutrophils % Cancelled Not Reportable Lymphocytes % Cancelled Not Reportable Monocytes % Cancelled Not Reportable Eosinophils % Cancelled Not Reportable Basophils % Cancelled Not Reportable Absolute Neutrophils Cancelled Not Reportable Absolute Lymphocytes Cancelled Not Reportable Absolute Monocytes Cancelled Not Reportable Absolute Eosinophils Cancelled Not Reportable Absolute Basophils Cancelled Not Reportable Sodium 142.9 Potassium 4.5 Chloride 98 Carbon Dioxide 42 H* Anion Gap 3 L BUN 58 H Creatinine 1.71 H Est GFR ( Amer) 35 L Est GFR (Non-Af Amer) 29 L Glucose 69 L Calcium 8.6 08/01/16 06:23 WBC RBC Hgb Hct MCV MCH MCHC RDW Plt Count Seg Neutrophils % Lymphocytes % Monocytes % Eosinophils % Basophils % Absolute Neutrophils Absolute Lymphocytes Absolute Monocytes Absolute Eosinophils Absolute Basophils Sodium 144.1 Potassium 4.6 Chloride 97 L Carbon Dioxide 45 H* Anion Gap 2 L BUN 56 H Creatinine 1.75 H Est GFR ( Amer) 34 L Est GFR (Non-Af Amer) 28 L Glucose 66 L Calcium 8.9 07/30/16 10:58 NT-Pro-B Natriuret Pep 2210 H Impressions: Guidance Fluoroscopy 07/30/16 00:00 IMPRESSION: SUCCESSFUL PLACEMENT OF A 5 FR DUAL LUMEN 42 CM PICC IN THE left basilic VEIN. Interventional Vascular Procedure 07/30/16 00:00 IMPRESSION: SUCCESSFUL PLACEMENT OF A 5 FR DUAL LUMEN 42 CM PICC IN THE left basilic VEIN. PICC Line Insertion 07/30/16 00:00 IMPRESSION: SUCCESSFUL PLACEMENT OF A 5 FR DUAL LUMEN 42 CM PICC IN THE left basilic VEIN. Lung Scan-VQ NM 07/30/16 01:20 IMPRESSION: Low probability pulmonary embolus. Chest X-Ray 07/31/16 06:00 IMPRESSION: Mild bibasilar airspace disease likely atelectasis. Pneumonia could not be excluded. Mild cardiomegaly and pulmonary vascular prominence PICC line tip in the superior vena cava Assessment & Plan - Diagnosis (1) Acute and chronic respiratory failure with hypercapnia Is this a current diagnosis for this admission?: YesPlan: Patient has chronic oxygen dependent COPD. (2) Decompensated COPD with exacerbation (chronic obstructive pulmonary disease) Is this a current diagnosis for this admission?: YesPlan: Continue prednisone 40 mg daily. Continue Pulmicort and albuterol. (3) Pneumonia Qualifiers: Pneumonia type: due to unspecified organism Laterality: right Lung location: lower lobe of lung Qualified Code(s): J18.9 - Pneumonia, unspecified organism Is this a current diagnosis for this admission?: YesPlan: Patient has healthcare associated pneumonia with high probability of gram- negative organism. I'm concerned that she has recently been on Xeloda for colon cancer. Discontinue IV aztreonam and Levaquin. Start oral Levaquin. (4) Anemia Qualifiers: Anemia type: iron deficiency Iron deficiency anemia type: chronic blood loss Qualified Code(s): D50.0 - Iron deficiency anemia secondary to blood loss (chronic) Is this a current diagnosis for this admission?: Yes (5) CHF (congestive heart failure) Qualifiers: Congestive heart failure type: diastolic Congestive heart failure chronicity: unspecified congestive heart failure chronicity Qualified Code(s): I50.30 - Unspecified diastolic (congestive) heart failure Is this a current diagnosis for this admission?: YesPlan: Echocardiogram shows normal EF, a 2/4 diastolic dysfunction, moderate pulmonary hypertension. Continue Lasix. Started on Coreg 6.25 mg twice daily this admission. No WILLIE inhibitor secondary to allergy. No ARB secondary to CKD3. (6) Chronic renal failure, stage 3 (moderate) Is this a current diagnosis for this admission?: YesPlan: At baseline. Follow up with Dr. Mcnally outpatient. (7) Diabetes mellitus Qualifiers: Diabetes mellitus type: type 2 Diabetes mellitus complication status: with kidney complications Diabetes mellitus complication detail: with chronic kidney disease Diabetes mellitus longterm insulin use: without long term acute care registered nurse use Chronic kidney disease stage: stage 3 (moderate) Qualified Code(s): E11.22 - Type 2 diabetes mellitus with diabetic chronic kidney disease; N18.1 - Chronic kidney disease, stage 1; Z79.4 - FPC ( current) use of insulin Is this a current diagnosis for this admission?: YesPlan: Amaryl. SSI. Glucose control should improve with de-escalation of steroids. (8) Colon cancer Qualifiers: Colon location: sigmoid Qualified Code(s): C18.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 Is this a current diagnosis for this admission?: YesPlan: Follow up with Dr. Pelletier after discharge. (9) DNR (do not resuscitate) Is this a current diagnosis for this admission?: Yes - Time Time Spent with patient: 35 or more minutes
[2016-08-01] MEDS: MONTELUKAST SODIUM 10 MG TABLET PO SCH (22:16)
[2016-08-01] MEDS: ATORVASTATIN CALCIUM 20 MG TABLET PO SCH (22:17)
[2016-08-01] MEDS ORDERED: NORMAL SALINE 10 ML SDV (AFTER EACH USE) IV PRN (23:49)
[2016-08-02] MEDS: HEPARIN SOD (PORCINE) 5,000 UNIT/ML 1 ML SYRINGE SUBCUT SCH ×3 (05:32→21:16)
[2016-08-02] MEDS: HYDROCODONE BIT/HOMATROPINE 5-1.5 MG TABLET PO PRN (05:58)
[2016-08-02 06:36] LABS: BLOOD UREA NITROGEN 70 mg/dL (7-20); CALCIUM 8.4 mg/dL (8.4-10.2); CHLORIDE 95 mmol/L (98-107); CREATININE RESULT 1.98 mg/dL (0.52-1.25); GLUCOSE 67 mg/dL (75-110); POTASSIUM 5.1 mmol/L (3.6-5.0); SODIUM 142.3 mmol/L (137-145)
[2016-08-02 06:38] LABS: HEMATOCRIT 30.3 % (36.0-47.0); HEMOGLOBIN 9.3 g/dL (12.0-15.5); HGB HCT DIFFERENCE -2.4; MEAN CORPUSCULAR HEMOGLOBIN 29.7 pg (27.0-33.4); MEAN CORPUSCULAR HGB CONC 30.8 g/dL (32.0-36.0); MEAN CORPUSCULAR VOLUME 97 fl (80-97); RED BLOOD COUNT 3.13 10^6/uL (3.72-5.28); WHITE BLOOD COUNT 12.2 10^3/uL (4.0-10.5)
[2016-08-02 06:46] LABS: ANION GAP 5 (5-19)
[2016-08-02 06:54] LABS: BAND NEUTROPHILS % (MANUAL) 1 % (3-5); BASOPHILS % (MANUAL) 1 % (0-2); CARBON DIOXIDE 42 mmol/L (22-30); EOSINOPHILS % (MANUAL) 0 % (0-6); LYMPHOCYTES % (MANUAL) 12 % (13-45); TOTAL CELLS COUNTED 100
[2016-08-02 06:55] LABS: ANISOCYTOSIS SLIGHT; TOXIC GRANULATION SLIGHT
[2016-08-02] MEDS: ALBUTEROL SULFATE 0.083% NEB 2.5 MG/3 ML AMPUL NEB PRN ×2 (07:52→20:39)
[2016-08-02] MEDS: BUDESONIDE NEB 0.5 MG/2 ML AMPUL NEB SCH ×2 (07:52→20:39)
[2016-08-02] MEDS: VENLAFAXINE HCL 75 MG TABLET PO SCH (09:27)
[2016-08-02] MEDS: GLIMEPIRIDE 1 MG TABLET PO SCH (09:27)
[2016-08-02] MEDS: PREDNISONE 20 MG TABLET PO SCH (09:28)
[2016-08-02] MEDS: CARVEDILOL 6.25 MG TABLET PO SCH ×2 (09:29→21:16)
[2016-08-02] MEDS: CETIRIZINE 10 MG TABLET PO SCH (09:29)
[2016-08-02] MEDS: AMLODIPINE BESYLATE 10 MG TABLET PO SCH (09:30)
[2016-08-02] MEDS: FERROUS SULFATE 325 MG TABLET PO SCH (09:30)
[2016-08-02] MEDS: FUROSEMIDE 40 MG TABLET PO SCH (09:30)
[2016-08-02] MEDS: CLONAZEPAM 1 MG TABLET PO SCH ×2 (09:30→21:16)
[2016-08-02] MEDS: ASPIRIN 81 MG TABLET, CHEWABLE PO SCH (09:31)
[2016-08-02] MEDS: LANSOPRAZOLE 30 MG TAB.RAP.DR PO SCH (09:31)
[2016-08-02] MEDS: HYDRALAZINE HCL 50 MG TABLET PO SCH ×2 (09:31→21:16)
[2016-08-02] MEDS: GABAPENTIN 100 MG CAPSULE PO SCH ×2 (09:31→21:16)
[2016-08-02] MEDS: FLUTICASONE NASAL SPRAY 50 MCG/SPRY 120 SPRAY/16 GM NASL SCH ×2 (09:32→23:27)
[2016-08-02] MEDS: NORMAL SALINE 10 ML SDV (SCHEDULED) IV SCH ×2 (09:33→23:27)
[2016-08-02] MEDS ORDERED: LEVOFLOXACIN 750 MG TABLET PO SCH (10:00)
[2016-08-02] MEDS ORDERED: ALLOPURINOL 100 MG TABLET PO ONE (12:00)
[2016-08-02] MEDS ORDERED: DOXYCYCLINE HYCLATE 100 MG TABLET PO ONE (12:00)
[2016-08-02] MEDS: INSULIN LISPRO 100 UNIT/ML 3 ML VIAL SUBCUT PRN ×2 (17:49→21:16)
[2016-08-02] MEDS ORDERED: HYDROCODONE BIT/HOMATROPINE 5-1.5 MG TABLET PO PRN (18:25)
--- NOTE | 2016-08-02 18:25 | PDOC PROGRESS REPORT ---
Subjective Progress Note for:: 08/02/16 Subjective:: Patient seems excessively drowsy today. She states she normally only takes Klonopin at night and has been receiving this twice daily in the hospital. Otherwise her shortness of breath is improved. She also complains of diffuse muscle cramps She denies fever, chills, headache, chest pain, focal weakness/ numbness. Physical Exam Vital Signs: Temp Pulse Resp BP Pulse Ox 98.0 F 66 20 132/53 H 98 08/02/16 16:18 08/02/16 16:18 08/02/16 16:18 08/02/16 16:18 08/02/16 16:18 Intake & Output 08/01/16 08/02/16 08/03/16 06:59 06:59 06:59 Intake Total 2526 795 400 Output Total 4400 1050 Balance -1874 -255 400 Weight 102.6 kg 103.737 kg GENERAL: No acute distress HEENT: Conjunctiva clear, nonicteric, moist mucous membranes, no JVD, midline trachea RESPIRATORY: Faint bilateral wheezes, good air excursion no rhonchi CARDIAC: Regular rate and rhythm, no murmurs/gallops/rubs ABDOMEN: Soft, nondistended, nontender, positive bowel sounds, no rebound, no guarding EXTREMETIES: Trace Pitting edema and bilateral lower extremity NEUROLOGIC: Slight is sedate but able to converse appropriately, oriented to person/place/time, CN's grossly intact, no focal deficits SKIN: No rash, wounds PSYCH: Normal mood, normal affect Results Laboratory Results: 08/02/16 05:37 08/02/16 05:37 08/02/16 08/02/16 05:37 05:37 WBC 12.2 H RBC 3.13 L Hgb 9.3 L Hct 30.3 L MCV 97 MCH 29.7 MCHC 30.8 L RDW 14.0 Plt Count 213 Seg Neutrophils % Not Reportable Lymphocytes % Not Reportable Monocytes % Not Reportable Eosinophils % Not Reportable Basophils % Not Reportable Absolute Neutrophils Not Reportable Absolute Lymphocytes Not Reportable Absolute Monocytes Not Reportable Absolute Eosinophils Not Reportable Absolute Basophils Not Reportable Sodium 142.3 Potassium 5.1 H Chloride 95 L Carbon Dioxide 42 H* Anion Gap 5 BUN 70 H Creatinine 1.98 H Est GFR ( Amer) 30 L Est GFR (Non-Af Amer) 24 L Glucose 67 L Calcium 8.4 07/31/16 22:15 Nasophary ([facility] Only) MRSA Surveillance Culture - Final NO MRSA RECOVERED 07/30/16 10:58 NT-Pro-B Natriuret Pep 2210 H Impressions: Guidance Fluoroscopy 07/30/16 00:00 IMPRESSION: SUCCESSFUL PLACEMENT OF A 5 FR DUAL LUMEN 42 CM PICC IN THE left basilic VEIN. Interventional Vascular Procedure 07/30/16 00:00 IMPRESSION: SUCCESSFUL PLACEMENT OF A 5 FR DUAL LUMEN 42 CM PICC IN THE left basilic VEIN. PICC Line Insertion 07/30/16 00:00 IMPRESSION: SUCCESSFUL PLACEMENT OF A 5 FR DUAL LUMEN 42 CM PICC IN THE left basilic VEIN. Lung Scan-VQ NM 07/30/16 01:20 IMPRESSION: Low probability pulmonary embolus. Chest X-Ray 07/31/16 06:00 IMPRESSION: Mild bibasilar airspace disease likely atelectasis. Pneumonia could not be excluded. Mild cardiomegaly and pulmonary vascular prominence PICC line tip in the superior vena cava Assessment & Plan - Diagnosis (1) Acute and chronic respiratory failure with hypercapnia Is this a current diagnosis for this admission?: YesPlan: Patient has chronic oxygen dependent COPD. (2) Decompensated COPD with exacerbation (chronic obstructive pulmonary disease) Is this a current diagnosis for this admission?: YesPlan: Continue prednisone 40 mg daily. Continue Pulmicort and albuterol. (3) Pneumonia Qualifiers: Pneumonia type: due to unspecified organism Laterality: right Lung location: lower lobe of lung Qualified Code(s): J18.9 - Pneumonia, unspecified organism Is this a current diagnosis for this admission?: YesPlan: Patient has healthcare associated pneumonia with high probability of gram- negative organism. I'm concerned that she has recently been on Xeloda for colon cancer. Doxycycline 100 mg twice daily until 08/09/2016. (4) Anemia Qualifiers: Anemia type: iron deficiency Iron deficiency anemia type: chronic blood loss Qualified Code(s): D50.0 - Iron deficiency anemia secondary to blood loss (chronic) Is this a current diagnosis for this admission?: Yes (5) CHF (congestive heart failure) Qualifiers: Congestive heart failure type: diastolic Congestive heart failure chronicity: unspecified congestive heart failure chronicity Qualified Code(s): I50.30 - Unspecified diastolic (congestive) heart failure Is this a current diagnosis for this admission?: YesPlan: Echocardiogram shows normal EF, a 2/4 diastolic dysfunction, moderate pulmonary hypertension. Continue Lasix. Started on Coreg 6.25 mg twice daily this admission. No WILLIE inhibitor secondary to allergy. No ARB secondary to CKD3. (6) Chronic renal failure, stage 3 (moderate) Is this a current diagnosis for this admission?: YesPlan: At baseline. Follow up with Dr. Mcnally outpatient. Decrease allopurinol dose to 100 mg daily. Avoid nephrotoxic medications. 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 SSI. Glucose control should improve with de-escalation of steroids. (8) Colon cancer Qualifiers: Colon location: sigmoid Qualified Code(s): C18.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 Is this a current diagnosis for this admission?: YesPlan: Follow up with Dr. Pelletier after discharge. (9) Anxiety Is this a current diagnosis for this admission?: YesPlan: Decrease Klonopin to 1 mg nightly secondary to sedation. (10) Myalgia Is this a current diagnosis for this admission?: YesPlan: Possibly related to Lipitor. Check CPK level and sedimentation rate. (11) DNR (do not resuscitate) Is this a current diagnosis for this admission?: Yes (12) Somnolence Is this a current diagnosis for this admission?: YesPlan: Decrease Klonopin. Decrease hydrocodone frequency. - Time Time Spent with patient: 35 or more minutes Anticipated discharge: Home with Homehealth Within: within 48 hours
[2016-08-02] MEDS: DOXYCYCLINE HYCLATE 100 MG TABLET PO SCH (21:16)
[2016-08-02] MEDS: ATORVASTATIN CALCIUM 20 MG TABLET PO SCH (21:16)
[2016-08-02] MEDS: MONTELUKAST SODIUM 10 MG TABLET PO SCH (21:16)
[2016-08-03] MEDS: HEPARIN SOD (PORCINE) 5,000 UNIT/ML 1 ML SYRINGE SUBCUT SCH ×3 (05:29→22:23)
[2016-08-03 06:14] LABS: HEMATOCRIT 30.7 % (36.0-47.0); HEMOGLOBIN 9.4 g/dL (12.0-15.5); HGB HCT DIFFERENCE -2.5; MEAN CORPUSCULAR HEMOGLOBIN 29.5 pg (27.0-33.4); MEAN CORPUSCULAR HGB CONC 30.5 g/dL (32.0-36.0); MEAN CORPUSCULAR VOLUME 97 fl (80-97); RED BLOOD COUNT 3.17 10^6/uL (3.72-5.28); RED CELL DISTRIBUTION WIDTH 14.2 % (11.5-14.0); WHITE BLOOD COUNT 13.3 10^3/uL (4.0-10.5)
[2016-08-03 06:37] LABS: ALANINE AMINOTRANSFERASE 35 U/L (9-52); ALKALINE PHOSPHATASE 70 U/L (38-126); ASPARTATE AMINO TRANSFERASE 19 U/L (14-36); BILIRUBIN,TOTAL 0.2 mg/dL (0.2-1.3); BLOOD UREA NITROGEN 71 mg/dL (7-20); CALCIUM 8.4 mg/dL (8.4-10.2); CHLORIDE 95 mmol/L (98-107); CREATINE KINASE 21 U/L (30-135); CREATININE RESULT 2.34 mg/dL (0.52-1.25); GLUCOSE 53 mg/dL (75-110); MAGNESIUM 2.2 mg/dL (1.6-2.3); POTASSIUM 5.3 mmol/L (3.6-5.0); SODIUM 142.8 mmol/L (137-145); TOTAL PROTEIN 5.3 g/dL (6.3-8.2)
[2016-08-03 06:44] LABS: ANION GAP 7 (5-19)
[2016-08-03 06:59] LABS: ERYTHROCYTE SEDIMENTATION RATE 46 mm/hr (0-30)
[2016-08-03 07:08] LABS: BASOPHILS % (MANUAL) 0 % (0-2); EOSINOPHILS % (MANUAL) 0 % (0-6); LYMPHOCYTES % (MANUAL) 18 % (13-45); TOTAL CELLS COUNTED 100
[2016-08-03 07:11] LABS: ANISOCYTOSIS SLIGHT; POIKILOCYTOSIS SLIGHT; POLYCHROMASIA SLIGHT
[2016-08-03 07:12] LABS: OVALOCYTES SLIGHT; STOMATOCYTES 2+
[2016-08-03 07:13] LABS: TOXIC GRANULATION SLIGHT
[2016-08-03 07:31] LABS: CARBON DIOXIDE 41 mmol/L (22-30)
[2016-08-03] MEDS: LANSOPRAZOLE 30 MG TAB.RAP.DR PO SCH (07:49)
[2016-08-03] MEDS: GLIMEPIRIDE 1 MG TABLET PO SCH (07:49)
[2016-08-03] MEDS: FERROUS SULFATE 325 MG TABLET PO SCH (07:49)
[2016-08-03] MEDS: BUDESONIDE NEB 0.5 MG/2 ML AMPUL NEB SCH ×2 (08:31→20:09)
[2016-08-03] MEDS: FLUTICASONE NASAL SPRAY 50 MCG/SPRY 120 SPRAY/16 GM NASL SCH ×2 (09:25→22:20)
[2016-08-03] MEDS: CETIRIZINE 10 MG TABLET PO SCH (09:30)
[2016-08-03] MEDS: HYDRALAZINE HCL 50 MG TABLET PO SCH ×2 (09:30→22:23)
[2016-08-03] MEDS: GABAPENTIN 100 MG CAPSULE PO SCH ×2 (09:31→22:20)
[2016-08-03] MEDS: CARVEDILOL 6.25 MG TABLET PO SCH ×2 (09:31→22:23)
[2016-08-03] MEDS: FUROSEMIDE 40 MG TABLET PO SCH (09:31)
[2016-08-03] MEDS: VENLAFAXINE HCL 75 MG TABLET PO SCH (09:31)
[2016-08-03] MEDS: ASPIRIN 81 MG TABLET, CHEWABLE PO SCH (09:31)
[2016-08-03] MEDS: ALLOPURINOL 100 MG TABLET PO SCH (09:31)
[2016-08-03] MEDS: AMLODIPINE BESYLATE 10 MG TABLET PO SCH (09:31)
[2016-08-03] MEDS: DOXYCYCLINE HYCLATE 100 MG TABLET PO SCH ×2 (09:31→22:19)
[2016-08-03] MEDS: NORMAL SALINE 10 ML SDV (SCHEDULED) IV SCH ×2 (09:32→22:24)
[2016-08-03] MEDS: PREDNISONE 20 MG TABLET PO SCH (09:32)
[2016-08-03] MEDS: INSULIN LISPRO 100 UNIT/ML 3 ML VIAL SUBCUT PRN ×2 (16:44→22:30)
--- NOTE | 2016-08-03 19:00 | PDOC PROGRESS REPORT ---
Subjective Progress Note for:: 08/03/16 Subjective:: Patient reports continued weakness and difficulty ambulating. She denies fever , chills, headache, chest pain, focal weakness/numbness. Physical Exam Vital Signs: Temp Pulse Resp BP Pulse Ox 97.5 F 69 22 H 129/45 H 98 08/03/16 15:34 08/03/16 15:34 08/03/16 15:34 08/03/16 15:34 08/03/16 16:00 Intake & Output 08/02/16 08/03/16 08/04/16 06:59 06:59 06:59 Intake Total 795 1802 420 Output Total 1050 700 500 Balance -255 1102 -80 Weight 103.737 kg 103.1 kg GENERAL: No acute distress HEENT: Conjunctiva clear, nonicteric, moist mucous membranes, no JVD, midline trachea RESPIRATORY: Faint bilateral wheezes, good air excursion no rhonchi CARDIAC: Regular rate and rhythm, no murmurs/gallops/rubs ABDOMEN: Soft, nondistended, nontender, positive bowel sounds, no rebound, no guarding EXTREMETIES: Trace Pitting edema and bilateral lower extremity NEUROLOGIC: Slight is sedate but able to converse appropriately, oriented to person/place/time, CN's grossly intact, no focal deficits SKIN: No rash, wounds PSYCH: Normal mood, normal affect Results Laboratory Results: 08/03/16 05:35 08/03/16 05:35 08/03/16 08/03/16 05:35 05:35 WBC 13.3 H RBC 3.17 L Hgb 9.4 L Hct 30.7 L MCV 97 MCH 29.5 MCHC 30.5 L RDW 14.2 H Plt Count 220 Seg Neutrophils % Not Reportable Lymphocytes % Not Reportable Monocytes % Not Reportable Eosinophils % Not Reportable Basophils % Not Reportable Absolute Neutrophils Not Reportable Absolute Lymphocytes Not Reportable Absolute Monocytes Not Reportable Absolute Eosinophils Not Reportable Absolute Basophils Not Reportable Sodium 142.8 Potassium 5.3 H Chloride 95 L Carbon Dioxide 41 H* Anion Gap 7 BUN 71 H Creatinine 2.34 H Est GFR ( Amer) 24 L Est GFR (Non-Af Amer) 20 L Glucose 53 L Calcium 8.4 Magnesium 2.2 Total Bilirubin 0.2 AST 19 ALT 35 Alkaline Phosphatase 70 Total Protein 5.3 L Albumin 3.0 L 07/30/16 08/03/16 10:58 05:35 Creatine Kinase 21 L NT-Pro-B Natriuret Pep 2210 H Impressions: Guidance Fluoroscopy 07/30/16 00:00 IMPRESSION: SUCCESSFUL PLACEMENT OF A 5 FR DUAL LUMEN 42 CM PICC IN THE left basilic VEIN. Interventional Vascular Procedure 07/30/16 00:00 IMPRESSION: SUCCESSFUL PLACEMENT OF A 5 FR DUAL LUMEN 42 CM PICC IN THE left basilic VEIN. PICC Line Insertion 07/30/16 00:00 IMPRESSION: SUCCESSFUL PLACEMENT OF A 5 FR DUAL LUMEN 42 CM PICC IN THE left basilic VEIN. Lung Scan-VQ NM 07/30/16 01:20 IMPRESSION: Low probability pulmonary embolus. Chest X-Ray 07/31/16 06:00 IMPRESSION: Mild bibasilar airspace disease likely atelectasis. Pneumonia could not be excluded. Mild cardiomegaly and pulmonary vascular prominence PICC line tip in the superior vena cava Assessment & Plan - Diagnosis (1) Acute and chronic respiratory failure with hypercapnia Is this a current diagnosis for this admission?: YesPlan: Patient has chronic oxygen dependent COPD. (2) Decompensated COPD with exacerbation (chronic obstructive pulmonary disease) Is this a current diagnosis for this admission?: YesPlan: Decrease prednisone to 10 mg daily 2 days then discontinue. Continue Pulmicort and albuterol. (3) Pneumonia Qualifiers: Pneumonia type: due to unspecified organism Laterality: right Lung location: lower lobe of lung Qualified Code(s): J18.9 - Pneumonia, unspecified organism Is this a current diagnosis for this admission?: YesPlan: Patient has healthcare associated pneumonia with high probability of gram- negative organism. I'm concerned that she has recently been on Xeloda for colon cancer. Doxycycline 100 mg twice daily until 08/09/2016. (4) Anemia Qualifiers: Anemia type: iron deficiency Iron deficiency anemia type: chronic blood loss Qualified Code(s): D50.0 - Iron deficiency anemia secondary to blood loss (chronic) Is this a current diagnosis for this admission?: Yes (5) CHF (congestive heart failure) Qualifiers: Congestive heart failure type: diastolic Congestive heart failure chronicity: unspecified congestive heart failure chronicity Qualified Code(s): I50.30 - Unspecified diastolic (congestive) heart failure Is this a current diagnosis for this admission?: YesPlan: Echocardiogram shows normal EF, a 2/4 diastolic dysfunction, moderate pulmonary hypertension. Continue Lasix 40 mg by mouth daily. Started on Coreg 6.25 mg twice daily this admission. No WILLIE inhibitor secondary to allergy. No ARB secondary to CKD3. (6) Chronic renal failure, stage 3 (moderate) Is this a current diagnosis for this admission?: YesPlan: Creatinine increasing over past couple days. Consult Dr. Mcnally of nephrology as patient is followed by Dr. Mcnally as an outpatient. Decrease allopurinol dose to 100 mg daily. Avoid nephrotoxic medications. (7) Diabetes mellitus Qualifiers: Diabetes mellitus type: type 2 Diabetes mellitus complication status: with kidney complications Diabetes mellitus complication detail: with chronic kidney disease Diabetes mellitus termite treater insulin use: without chcf use Chronic kidney disease stage: stage 3 (moderate) Qualified Code(s): E11.22 - Type 2 diabetes mellitus with diabetic chronic kidney disease; N18.1 - Chronic kidney disease, stage 1; Z79.4 - group home ( current) use of insulin Is this a current diagnosis for this admission?: YesPlan: Amaryl. SSI. Glucose control should improve with de-escalation of steroids. (8) Colon cancer Qualifiers: Colon location: sigmoid Qualified Code(s): C18.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 Is this a current diagnosis for this admission?: YesPlan: Follow up with Dr. Pelletier after discharge. (9) Anxiety Is this a current diagnosis for this admission?: YesPlan: Klonopin 1 mg nightly secondary to sedation. (10) Myalgia Is this a current diagnosis for this admission?: YesPlan: Possibly related to Lipitor. CPK level normal. If this persists may still consider discontinuation of statin. (11) Somnolence Is this a current diagnosis for this admission?: YesPlan: Resolved with decrease of Klonopin and hydrocodone. (12) DNR (do not resuscitate) Is this a current diagnosis for this admission?: Yes (13) Ambulatory dysfunction Is this a current diagnosis for this admission?: YesPlan: Physical therapy is recommending SNF for rehabilitation. - Time Time Spent with patient: 35 or more minutes Anticipated discharge: SNF Within: within 48 hours
--- NOTE | 2016-08-03 19:47 | PDOC CONSULTATION ---
Consultation Consult Date: 08/03/16 Attending physician:: PLACIDO NEAL Consult reason:: I was asked by Dr. Neal to see the patient because of worsening kidney function. History of Present Illness Admission Date/PCP: 07/30/16 08:27 ANUEL SOMMERS, History of Present Illness: GARCIA CORBIN is a 76 year old female that was recently discharged from the hospital for COPD exacerbation presents to the hospital where worsening shortness of breath and occasional chills. 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 She is normally followed by Dr. Belcher of pulmonary medicine for this. It is noteworthy that she also has stage III colon cancer that was diagnosed last year for which she sees Dr. Chelsea Pelletier of oncology. She has been undergoing treatment with Xeloda every other week but she and her daughter have decided to discontinue this treatment. Her last dose of this medication was one week ago. Patient has stage III chronic kidney disease for which I have seen the patient couple of years ago here in the hospital but has not really followed up as an outpatient. When the patient got admitted her kidney function was at baseline with BUN of 68 creatinine of 1.7. However yesterday her BUN was 17 and a creatinine went up to 1.98 and today it went further up with BUN of 71 creatinine of 2.34. She seems to be making good amount of urine output until yesterday. Prior to yesterday it seems like she is urinating more than she is taking in. She actually admitted that she is not drinking so much here in the hospital. He reliability is guarded though as she seems to be a little confused sometimes. She tells me she just got admitted yesterday when she has been here for the last few days. Patient said she still short of breath which she is chronically anyway. She denies any cough, chest pains, nausea, vomiting , or abdominal pain. She denies any dysuria nor hematuria. She relates that she is eating and this was confirmed by the nurse. She continues to have some leg swelling. She could not tell me if this is better or worse from admission. Patient has normal systolic function but grade 2 over 4 diastolic dysfunction from her most recent echocardiogram. There is no history of contrast nor any other nephrotoxic agents being given the patient during this admission. Past Medical History Cardiac Medical History: Reports: CHF-Diastolic, Hyperlipidemia, Hypertension- primary Pulmonary Medical History: Reports: Asthma, Bronchitis, Chronic Obstructive Pulmonary Disease (COPD), Pneumonia, Respiratory Failure - Chronic oxygen dependent Neurological Medical History: Reports: Ischemic CVA Endocrine Medical History: Reports: Diabetes Mellitus Type 2 Complications of Diabetes: Reports: Nephropathy Renal/ Medical History: Reports: Chronic Kidney Disease Stage III, Proteinuria Malignancy Medical History: Reports: Colorectal Cancer GI Medical History: Reports: Gastroesophageal Reflux Disease Musculoskeltal Medical History: Reports: Arthritis Psychiatric Medical History: Reports: Depression 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 Past Surgical History Past Surgical History: Reports: Colostomy - Colon Sigmoid resection on 2015 with colostomy, Hysterectomy, Tonsillectomy, Other - Cataract surgery in her right Social History Lives with: Family Smoking Status: Former Smoker Frequency of Alcohol Use: None Hx Recreational Drug Use: No Drugs: None Hx Prescription Drug Abuse: No - Advance Directive Resuscitation Status: Do Not Resuscitate Family History Family History: DM, Hyperlipidemia, Hypertension Parental Family History Reviewed: Yes Children Family History Reviewed: Unknown Sibling(s) Family History Reviewed.: Unknown Medication/Allergy Home Medications: Atorvastatin Calcium [Lipitor 20 mg Tablet] 20 mg PO QHS #0 tablet 08/29/15 Ferrous Sulfate [Feosol 325 mg Tablet] 325 mg PO DAILY #0 tablet 08/29/15 Montelukast Sodium [Singulair 10 mg Tablet] 10 mg PO QHS #0 tablet 08/29/15 Venlafaxine HCl [Effexor 75 mg Tablet] 150 mg PO DAILY #0 tablet 08/29/15 Cetirizine HCl [Zyrtec 10 mg Tablet] 10 mg PO DAILY 09/07/15 Albuterol Sulfate [Ventolin 0.083% Neb 2.5 mg/3 mL Ampul] 2.5 mg NEB RTQ4HP PRN #0 vial.neb 09/19/15 Budesonide [Pulmicort Neb 0.5 mg/2 ml Ampul] 0.5 mg NEB RTQ12 #0 ampul.neb 09/18 Furosemide [Lasix 40 mg Tablet] 40 mg PO DAILY #0 tablet 09/19/15 Aspirin 81 mg PO DAILY PRN 06/09/16 Amlodipine Besylate [Norvasc 10 mg Tablet] 10 mg PO DAILY tablet 06/11/16 Fluticasone Propionate [Flonase Nasal [place] 50 Mcg/[place] 16 gm] 2 spray NASL Q12 spray.pump 06/11/16 Allopurinol [Zyloprim] 300 mg PO QHS 06/28/16 Gabapentin [Neurontin 100 mg Capsule] 100 mg PO BID 06/28/16 Hydralazine HCl [Apresoline 50 mg Tablet] 50 mg PO BID 06/28/16 Glimepiride [Amaryl 1 mg Tablet] 2 mg PO ACBRKFST #0 tablet 07/02/16 Clonazepam [Klonopin] 1 mg PO BID 07/23/16 Hydrocodone Bit/Homatropine [Hycodan Syrup 5-1.5 mg/5 ml Ud Cup] 5 ml PO Q4HP PRN #120 ml 07/26/16 Prednisone 10 mg PO DAILY #39 tablet 07/26/16 Allergies/Adverse Reactions: lisinopril [From Zestril] Allergy (Severe, Verified 08/29/15 13:16) tongue swelling cefotaxime [From Claforan] Allergy (Verified 06/10/16 17:46) Generalized rash Review of Systems All systems: reviewed and no additional remarkable complaints except as stated Review of Systems: Constitutional: ABSENT: chills, fatigue, fever(s), headache(s), weight gain, weight loss Eyes: ABSENT: visual disturbances Ears: ABSENT: hearing changes Cardiovascular: ABSENT: chest pain, orthropnea, palpitations; admits shortness of breath and lower extremity edema Respiratory: ABSENT: cough, dyspnea, hemoptysis Gastrointestinal: ABSENT: abdominal pain, constipation, diarrhea, hematemesis, hematochezia, nausea, vomiting Genitourinary: ABSENT: dysuria, hematuria Musculoskeletal: ABSENT: joint swelling Integumentary: ABSENT: rash, wounds Neurological: ABSENT: abnormal gait, abnormal speech, confusion, dizziness, focal weakness, numbness, syncope Psychiatric: ABSENT: anxiety, depression Endocrine: ABSENT: cold intolerance, heat intolerance, polydipsia, polyuria Hematologic/Lymphatic: ABSENT: easy bleeding, easy bruising, lymphadenopathy Physical Exam Vital Signs: Temp Pulse Resp BP Pulse Ox 97.5 F 69 22 H 129/45 H 98 08/03/16 15:34 08/03/16 15:34 08/03/16 15:34 08/03/16 15:34 08/03/16 16:00 Intake & Output 08/02/16 08/03/1617 06:59 06:59 06:59 Intake Total 795 1802 1200 Output Total 5614 155 6449 Balance -255 1102 -200 Weight 103.737 kg 103.1 kg Exam: General appearance: no acute distress, cooperative, well-developed, well- nourished Head exam: PRESENT: atraumatic, normocephalic Eye exam: PRESENT: Conjunctiva pale, EOMI, PERRLA. ABSENT: conjunctival injection, scleral icterus Mouth exam: PRESENT: moist, neck supple, tongue midline Neck exam: PRESENT: full ROM. ABSENT: carotid bruit, JVD, lymphadenopathy, thyromegaly Respiratory exam: PRESENT: Diminished to auscultation bilaterally. She has right mid to base rales ABSENT: rhonchi, stridor, wheezes Cardiovascular exam: PRESENT: RRR, +S1, +S2. Grade 2/6 systolic murmur Pulses: PRESENT: normal radial pulses, normal dorsalis pedis pulses GI/Abdominal exam: PRESENT: normal bowel sounds, soft. She has her colostomy bag in her left lower quadrant ABSENT: guarding, mass, tenderness Rectal exam: deferred Extremities exam: PRESENT: full ROM. Grade 2 bilateral pitting edema ABSENT: calf tenderness Musculoskeletal: PRESENT: full ROM. ABSENT: deformity Neurological exam: PRESENT: alert, Awake, Oriented to person, Oriented to place , not so much Oriented to time, reflexes normal, CN II-XII grossly intact. ABSENT: motor sensory deficit Psychiatric exam: PRESENT: appropriate affect, normal mood. ABSENT: homicidal ideation, suicidal ideation Skin exam: PRESENT: intact, dry, warm. ABSENT: rash Results Laboratory Results: 08/03/16 05:35 08/03/16 05:35 08/03/16 08/03/16 05:35 05:35 WBC 13.3 H RBC 3.17 L Hgb 9.4 L Hct 30.7 L MCV 97 MCH 29.5 MCHC 30.5 L RDW 14.2 H Plt Count 220 Seg Neutrophils % Not Reportable Lymphocytes % Not Reportable Monocytes % Not Reportable Eosinophils % Not Reportable Basophils % Not Reportable Absolute Neutrophils Not Reportable Absolute Lymphocytes Not Reportable Absolute Monocytes Not Reportable Absolute Eosinophils Not Reportable Absolute Basophils Not Reportable Sodium 142.8 Potassium 5.3 H Chloride 95 L Carbon Dioxide 41 H* Anion Gap 7 BUN 71 H Creatinine 2.34 H Est GFR ( Amer) 24 L Est GFR (Non-Af Amer) 20 L Glucose 53 L Calcium 8.4 Magnesium 2.2 Total Bilirubin 0.2 AST 19 ALT 35 Alkaline Phosphatase 70 Total Protein 5.3 L Albumin 3.0 L 07/30/16 08/03/16 10:58 05:35 Creatine Kinase 21 L NT-Pro-B Natriuret Pep 2210 H Impressions: Guidance Fluoroscopy 07/30/16 00:00 IMPRESSION: SUCCESSFUL PLACEMENT OF A 5 FR DUAL LUMEN 42 CM PICC IN THE left basilic VEIN. Interventional Vascular Procedure 07/30/16 00:00 IMPRESSION: SUCCESSFUL PLACEMENT OF A 5 FR DUAL LUMEN 42 CM PICC IN THE left basilic VEIN. PICC Line Insertion 07/30/16 00:00 IMPRESSION: SUCCESSFUL PLACEMENT OF A 5 FR DUAL LUMEN 42 CM PICC IN THE left basilic VEIN. Lung Scan-VQ NM 07/30/16 01:20 IMPRESSION: Low probability pulmonary embolus. Chest X-Ray 07/31/16 06:00 IMPRESSION: Mild bibasilar airspace disease likely atelectasis. Pneumonia could not be excluded. Mild cardiomegaly and pulmonary vascular prominence PICC line tip in the superior vena cava Assessment & Plan - Diagnosis (1) Acute kidney injury superimposed on chronic kidney disease Is this a current diagnosis for this admission?: YesPlan: Patient is currently nonoliguric. Acute worsening of the patient's kidney function is most likely secondary to diuresis more than her oral intake. This can cause prerenal azotemia. No other identifiable precipitating factors aside from this. 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 I will hold the Lasix for the next couple of days and monitor her kidney function daily. Also monitor the patient's all intake and output. Encouraged patient to drink adequate amount of fluids. Patient does not need any acute renal replacement therapy at this time. Due to the patient's comorbid conditions she is not a candidate for chronic renal replacement therapy. Avoid further nephrotoxic agents. (2) Hyperkalemia Is this a current diagnosis for this admission?: YesPlan: Mild secondary to acute kidney injury. Follow low potassium diet. (3) Pneumonia Qualifiers: Pneumonia type: due to unspecified organism Laterality: right Lung location: lower lobe of lung Qualified Code(s): J18.9 - Pneumonia, unspecified organism Is this a current diagnosis for this admission?: YesPlan: On antibiotics per primary service. Adjust dose according to kidney function. (4) Acute and chronic respiratory failure with hypercapnia Is this a current diagnosis for this admission?: Yes (5) CHF (congestive heart failure) Qualifiers: Congestive heart failure type: diastolic Congestive heart failure chronicity: unspecified congestive heart failure chronicity Qualified Code(s): I50.30 - Unspecified diastolic (congestive) heart failure Is this a current diagnosis for this admission?: YesPlan: Patient seems to be stable and compensated at this time. (6) COPD (chronic obstructive pulmonary disease) Qualifiers: COPD type: unspecified COPD Qualified Code(s): J44.9 - Chronic obstructive pulmonary disease, unspecified Is this a current diagnosis for this admission?: YesPlan: Currently stable on steroids. (7) Diabetes mellitus Qualifiers: Diabetes mellitus type: type 2 Diabetes mellitus complication status: with kidney complications Diabetes mellitus complication detail: with chronic kidney disease Diabetes mellitus fdc insulin use: without long term care phlebotomist use Chronic kidney disease stage: stage 3 (moderate) Qualified Code(s): E11.22 - Type 2 diabetes mellitus with diabetic chronic kidney disease; N18.1 - Chronic kidney disease, stage 1; Z79.4 - alf ( current) use of insulin Is this a current diagnosis for this admission?: Yes - Notes Notes: Thank you very much for this consultation and I'll follow the patient with you. - Time Time Spent: 50 to 70 Minutes
[2016-08-03] MEDS: ALBUTEROL SULFATE 0.083% NEB 2.5 MG/3 ML AMPUL NEB PRN (20:09)
[2016-08-03] MEDS: ATORVASTATIN CALCIUM 20 MG TABLET PO SCH (22:19)
[2016-08-03] MEDS: MONTELUKAST SODIUM 10 MG TABLET PO SCH (22:19)
[2016-08-03] MEDS: CLONAZEPAM 1 MG TABLET PO SCH (22:20)
[2016-08-04] MEDS: ALBUTEROL SULFATE 0.083% NEB 2.5 MG/3 ML AMPUL NEB PRN (04:13)
[2016-08-04] MEDS: HEPARIN SOD (PORCINE) 5,000 UNIT/ML 1 ML SYRINGE SUBCUT SCH ×2 (05:39→13:16)
[2016-08-04 06:43] LABS: HEMATOCRIT 29.7 % (36.0-47.0); HEMOGLOBIN 9.3 g/dL (12.0-15.5); HGB HCT DIFFERENCE -1.8; MEAN CORPUSCULAR HEMOGLOBIN 30.5 pg (27.0-33.4); MEAN CORPUSCULAR HGB CONC 31.4 g/dL (32.0-36.0); MEAN CORPUSCULAR VOLUME 97 fl (80-97); RED BLOOD COUNT 3.05 10^6/uL (3.72-5.28); RED CELL DISTRIBUTION WIDTH 14.1 % (11.5-14.0); WHITE BLOOD COUNT 15.9 10^3/uL (4.0-10.5)
[2016-08-04 06:59] LABS: ANION GAP 6 (5-19); BLOOD UREA NITROGEN 86 mg/dL (7-20); CALCIUM 8.5 mg/dL (8.4-10.2); CARBON DIOXIDE 39 mmol/L (22-30); CHLORIDE 96 mmol/L (98-107); CREATININE RESULT 2.23 mg/dL (0.52-1.25); GLUCOSE 60 mg/dL (75-110); MAGNESIUM 2.4 mg/dL (1.6-2.3); POTASSIUM 5.7 mmol/L (3.6-5.0); SODIUM 140.9 mmol/L (137-145)
[2016-08-04 07:06] LABS: BAND NEUTROPHILS % (MANUAL) 1 % (3-5); BASOPHILS % (MANUAL) 0 % (0-2); EOSINOPHILS % (MANUAL) 0 % (0-6); LYMPHOCYTES % (MANUAL) 15 % (13-45); TOTAL CELLS COUNTED 100
[2016-08-04 07:08] LABS: ANISOCYTOSIS SLIGHT; OVALOCYTES SLIGHT; POIKILOCYTOSIS SLIGHT; STOMATOCYTES SLIGHT; TOXIC GRANULATION 1+; TOXIC VACUOLATION PRESENT
[2016-08-04] MEDS: GLIMEPIRIDE 1 MG TABLET PO SCH (07:30)
[2016-08-04] MEDS: LANSOPRAZOLE 30 MG TAB.RAP.DR PO SCH (07:30)
[2016-08-04] MEDS: FERROUS SULFATE 325 MG TABLET PO SCH (07:30)
[2016-08-04] MEDS: BUDESONIDE NEB 0.5 MG/2 ML AMPUL NEB SCH (07:41)
[2016-08-04] MEDS ORDERED: CALCIUM GLUCONATE 1000 MG/10 ML INJ IV ONE (08:30)
[2016-08-04] MEDS ORDERED: SODIUM POLYSTYRENE SULFONATE 15 GM/60 ML PO ONE (08:30)
[2016-08-04] MEDS: ALLOPURINOL 100 MG TABLET PO SCH (09:09)
[2016-08-04] MEDS: ASPIRIN 81 MG TABLET, CHEWABLE PO SCH (09:09)
[2016-08-04] MEDS: VENLAFAXINE HCL 75 MG TABLET PO SCH (09:09)
[2016-08-04] MEDS: GABAPENTIN 100 MG CAPSULE PO SCH (09:09)
[2016-08-04] MEDS: DOXYCYCLINE HYCLATE 100 MG TABLET PO SCH (09:10)
[2016-08-04] MEDS: CARVEDILOL 6.25 MG TABLET PO SCH (09:10)
[2016-08-04] MEDS: AMLODIPINE BESYLATE 10 MG TABLET PO SCH (09:10)
[2016-08-04] MEDS: HYDRALAZINE HCL 50 MG TABLET PO SCH (09:10)
[2016-08-04] MEDS: CETIRIZINE 10 MG TABLET PO SCH (09:11)
[2016-08-04] MEDS: FLUTICASONE NASAL SPRAY 50 MCG/SPRY 120 SPRAY/16 GM NASL SCH (09:12)
[2016-08-04] MEDS: NORMAL SALINE 10 ML SDV (SCHEDULED) IV SCH (09:12)
[2016-08-04] MEDS ORDERED: PREDNISONE 10 MG TABLET PO SCH (10:00)
[2016-08-04 16:50] VITALS: BP 131/71
[2016-08-04 16:51] LABS: ARTERIAL BLOOD BASE EXCESS 16.5 mmol/L; ARTERIAL BLOOD O2 SATURATION 91.8 % (94-98)
--- NOTE | 2016-08-04 18:35 | PDOC PROGRESS REPORT ---
Subjective Progress Note for:: 08/04/16 Subjective:: Patient is back on the BiPAP today. Apparently her respiratory status has worsened earlier today and patient became somnolent. Currently she is quite responsive unresponsive. Her urine output is not quantified today. However yesterday she was is still on negative fluid balance despite holding the Lasix. Patient was hyperkalemic today was given Kayexalate. Physical Exam Vital Signs: Temp Pulse Resp BP Pulse Ox 98.0 F 73 25 H 131/71 H 90 L 08/04/16 15:26 08/04/16 15:26 08/04/16 17:19 08/04/16 15:26 08/04/16 15:26 Intake & Output 08/03/16 08/04/16 08/05/16 06:59 06:59 06:59 Intake Total 1802 1200 173 Output Total 700 1800 Balance 1102 -600 173 Weight 103.1 kg 104 kg Exam: General appearance: [PRESENT: Patient is on BiPAP and currently unresponsive] Head exam: [PRESENT: atraumatic, normocephalic] Eye exam: [PRESENT: conjunctiva pale, PERRLA. ABSENT: scleral icterus] Neck exam: [ABSENT: JVD] Respiratory exam: [PRESENT: Diminished breath sounds. ABSENT: crackles, rales, rhonchi, unlabored, wheezes] Cardiovascular exam: [PRESENT: Regular rate rhythm -+S1, +S2. ABSENT: diastolic murmur, systolic murmur] GI/Abdominal exam: [PRESENT: normal bowel sounds, soft. ABSENT: guarding, mass , tenderness] Extremities exam: [She has grade 2 bilateral pitting edema] Neurological exam: [PRESENT: Currently unresponsive] Skin exam: [PRESENT: dry, warm,] Results Laboratory Results: 08/04/16 06:05 08/04/16 06:05 08/04/16 08/04/16 08/04/16 06:05 06:05 15:00 WBC 15.9 H RBC 3.05 L Hgb 9.3 L Hct 29.7 L MCV 97 MCH 30.5 MCHC 31.4 L RDW 14.1 H Plt Count 193 Seg Neutrophils % Not Reportable Lymphocytes % Not Reportable Monocytes % Not Reportable Eosinophils % Not Reportable Basophils % Not Reportable Absolute Neutrophils Not Reportable Absolute Lymphocytes Not Reportable Absolute Monocytes Not Reportable Absolute Eosinophils Not Reportable Absolute Basophils Not Reportable Carbonic Acid Cancelled HCO3/H2CO3 Ratio Cancelled ABG pH Cancelled ABG pCO2 Cancelled ABG pO2 Cancelled ABG HCO3 Cancelled ABG O2 Saturation Cancelled ABG Base Excess Cancelled FiO2 Cancelled Sodium 140.9 Potassium 5.7 H Chloride 96 L Carbon Dioxide 39 H Anion Gap 6 BUN 86 H Creatinine 2.23 H Est GFR ( Amer) 26 L Est GFR (Non-Af Amer) 21 L Glucose 60 L Calcium 8.5 Magnesium 2.4 H 08/04/16 16:41 WBC RBC Hgb Hct MCV MCH MCHC RDW Plt Count Seg Neutrophils % Lymphocytes % Monocytes % Eosinophils % Basophils % Absolute Neutrophils Absolute Lymphocytes Absolute Monocytes Absolute Eosinophils Absolute Basophils Carbonic Acid 4.24 H HCO3/H2CO3 Ratio 11:1 ABG pH 7.16 L* ABG pCO2 140.8 H* ABG pO2 84.4 ABG HCO3 49.5 H ABG O2 Saturation 91.8 L ABG Base Excess 16.5 FiO2 3.5L Sodium Potassium Chloride Carbon Dioxide Anion Gap BUN Creatinine Est GFR ( Amer) Est GFR (Non-Af Amer) Glucose Calcium Magnesium 07/30/16 08/03/16 10:58 05:35 Creatine Kinase 21 L NT-Pro-B Natriuret Pep 2210 H Impressions: Guidance Fluoroscopy 07/30/16 00:00 IMPRESSION: SUCCESSFUL PLACEMENT OF A 5 FR DUAL LUMEN 42 CM PICC IN THE left basilic VEIN. Interventional Vascular Procedure 07/30/16 00:00 IMPRESSION: SUCCESSFUL PLACEMENT OF A 5 FR DUAL LUMEN 42 CM PICC IN THE left basilic VEIN. PICC Line Insertion 07/30/16 00:00 IMPRESSION: SUCCESSFUL PLACEMENT OF A 5 FR DUAL LUMEN 42 CM PICC IN THE left basilic VEIN. Lung Scan-VQ NM 07/30/16 01:20 IMPRESSION: Low probability pulmonary embolus. Chest X-Ray 08/04/16 00:00 IMPRESSION: Trace left pleural effusion with left basilar airspace disease atelectasis versus pneumonia Assessment & Plan - Diagnosis (1) Acute kidney injury superimposed on chronic kidney disease Is this a current diagnosis for this admission?: YesPlan: Patient is currently nonoliguric. Acute worsening of the patient's kidney function is most likely secondary to diuresis more than her oral intake. This can cause prerenal azotemia. No other identifiable precipitating factors aside from this. Patient has baseline chronic kidney disease secondary to diabetic nephropathy with known nephrotic range proteinuria. Lasix is currently on hold. Due to patient's current condition we might expect to to see further worsening of her kidney function. The patient has very significant irreversible comorbid conditions including severe COPD with chronic CO2 retention which is currently much worse, stage III colon cancer not on any treatment and underlying heart condition. With all these conditions the patient is not a candidate for any renal replacement therapy whether acute or chronic. I discussed this with Dr. Chicas who agreed. The patient's pulmonary status continues to get worse I recommend that the patient be placed on comfort care measures. If the kidney function gets worse I would not recommend any renal replacement therapy to be initiated unless there is a chance of improving after conditions . (2) Hyperkalemia Is this a current diagnosis for this admission?: YesPlan: Kayexalate when necessary. (3) Acute and chronic respiratory failure with hypercapnia Is this a current diagnosis for this admission?: YesPlan: Currently worse requiring BiPAP with altered mental status. (4) COPD (chronic obstructive pulmonary disease) Qualifiers: COPD type: COPD with acute exacerbation Qualified Code(s): J44.1 - Chronic obstructive pulmonary disease with (acute) exacerbation Is this a current diagnosis for this admission?: Yes (5) Pneumonia Qualifiers: Pneumonia type: due to unspecified organism Laterality: right Lung location: lower lobe of lung Qualified Code(s): J18.9 - Pneumonia, unspecified organism Is this a current diagnosis for this admission?: YesPlan: On antibiotics per primary service. Adjust dose according to kidney function. (6) CHF (congestive heart failure) Qualifiers: Congestive heart failure type: diastolic Congestive heart failure chronicity: unspecified congestive heart failure chronicity Qualified Code(s): I50.30 - Unspecified diastolic (congestive) heart failure Is this a current diagnosis for this admission?: Yes (7) Diabetes mellitus Qualifiers: Diabetes mellitus type: type 2 Diabetes mellitus complication status: with kidney complications Diabetes mellitus complication detail: with chronic kidney disease Diabetes mellitus penitentiary insulin use: without penitentiary use Chronic kidney disease stage: stage 3 (moderate) Qualified Code(s): E11.22 - Type 2 diabetes mellitus with diabetic chronic kidney disease; N18.1 - Chronic kidney disease, stage 1; Z79.4 - prison ( current) use of insulin Is this a current diagnosis for this admission?: Yes - Time Time with patient: 15-25 minutes
[2016-08-04] MEDS ORDERED: MORPHINE SULFATE 10 MG/ML INJ IV PRN (19:13)
--- NOTE | 2016-08-04 19:35 | PDOC PROGRESS REPORT ---
Subjective Progress Note for:: 08/04/16 Subjective:: Patient's lethargic and nearing obtundation when I see her. Unable to obtain review of systems Physical Exam Vital Signs: Temp Pulse Resp BP Pulse Ox 97.8 F 74 18 133/57 H 94 08/04/16 04:04 08/04/16 07:41 08/04/16 07:41 08/04/16 04:04 08/04/16 07:41 Intake & Output 08/03/16 08/04/16 08/05/16 06:59 06:59 06:59 Intake Total 1802 1200 Output Total 700 1800 Balance 1102 -600 Weight 103.1 kg 104 kg Exam: GENERAL: Lethargic, unable to obtain orientation HEENT: Conjunctiva clear, nonicteric, moist mucous membranes, no JVD, midline trachea RESPIRATORY: diminished, but clear CARDIAC: Regular rate and rhythm, no murmurs/gallops/rubs ABDOMEN: Soft, nondistended, nontender, positive bowel sounds, no rebound, no guarding EXTREMETIES: 1+ Pitting edema bilateral to mid [place], no cyanosis, + clubbing NEUROLOGIC: Lethargic Results Laboratory Results: 08/04/16 06:05 08/04/16 06:05 08/04/16 08/04/16 06:05 06:05 WBC 15.9 H RBC 3.05 L Hgb 9.3 L Hct 29.7 L MCV 97 MCH 30.5 MCHC 31.4 L RDW 14.1 H Plt Count 193 Seg Neutrophils % Not Reportable Lymphocytes % Not Reportable Monocytes % Not Reportable Eosinophils % Not Reportable Basophils % Not Reportable Absolute Neutrophils Not Reportable Absolute Lymphocytes Not Reportable Absolute Monocytes Not Reportable Absolute Eosinophils Not Reportable Absolute Basophils Not Reportable Sodium 140.9 Potassium 5.7 H Chloride 96 L Carbon Dioxide 39 H Anion Gap 6 BUN 86 H Creatinine 2.23 H Est GFR ( Amer) 26 L Est GFR (Non-Af Amer) 21 L Glucose 60 L Calcium 8.5 Magnesium 2.4 H 07/30/16 08/03/16 10:58 05:35 Creatine Kinase 21 L NT-Pro-B Natriuret Pep 2210 H Impressions: Guidance Fluoroscopy 07/30/16 00:00 IMPRESSION: SUCCESSFUL PLACEMENT OF A 5 FR DUAL LUMEN 42 CM PICC IN THE left basilic VEIN. Interventional Vascular Procedure 07/30/16 00:00 IMPRESSION: SUCCESSFUL PLACEMENT OF A 5 FR DUAL LUMEN 42 CM PICC IN THE left basilic VEIN. PICC Line Insertion 07/30/16 00:00 IMPRESSION: SUCCESSFUL PLACEMENT OF A 5 FR DUAL LUMEN 42 CM PICC IN THE left basilic VEIN. Lung Scan-VQ NM 07/30/16 01:20 IMPRESSION: Low probability pulmonary embolus. Chest X-Ray 07/31/16 06:00 IMPRESSION: Mild bibasilar airspace disease likely atelectasis. Pneumonia could not be excluded. Mild cardiomegaly and pulmonary vascular prominence PICC line tip in the superior vena cava Assessment & Plan - Diagnosis (1) Acute respiratory acidosis Is this a current diagnosis for this admission?: YesPlan: Patient appears to be worsening from a respiratory standpoint in terms of her COPD. ABG done today reveals a pH 7.16 and a PCO2 of 140. Patient is noted to have compensation chronically with her kidney function however in light of worsening kidney function, patient's pulmonary status is suffering and patient was placed on BiPAP. I did discuss this case with patient's daughter who is elected at this time to make her comfort measures. I also discussed this case with Dr. davila who reports that she anticipates her kidney function to be worse tomorrow and is disinclined to dialyze this patient. Patient has known colon cancer stage III and all treatment has been stopped for this at this time. After discussion with the daughter, she has agreed to make this patient comfort measures. Comfort measures will be initiated for her. (2) Acute worsening of stage 4 chronic kidney disease Is this a current diagnosis for this admission?: Yes (3) Ambulatory dysfunction Is this a current diagnosis for this admission?: Yes (4) Decompensated COPD with exacerbation (chronic obstructive pulmonary disease) Is this a current diagnosis for this admission?: Yes (5) Pneumonia Qualifiers: Pneumonia type: due to unspecified organism Laterality: right Lung location: lower lobe of lung Qualified Code(s): J18.1 - Lobar pneumonia, unspecified organism Is this a current diagnosis for this admission?: Yes (6) Acute and chronic respiratory failure with hypercapnia Is this a current diagnosis for this admission?: Yes (7) Acute kidney injury superimposed on chronic kidney disease Is this a current diagnosis for this admission?: Yes (8) Anemia Qualifiers: Anemia type: iron deficiency Iron deficiency anemia type: chronic blood loss Qualified Code(s): D50.0 - Iron deficiency anemia secondary to blood loss (chronic) Is this a current diagnosis for this admission?: Yes (11) CHF (congestive heart failure) Qualifiers: Congestive heart failure type: diastolic Congestive heart failure chronicity: unspecified congestive heart failure chronicity Qualified Code(s): I50.30 - Unspecified diastolic (congestive) heart failure Is this a current diagnosis for this admission?: Yes (12) Colon cancer Qualifiers: Colon location: sigmoid Qualified Code(s): C18.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 Is this a current diagnosis for this admission?: Yes (13) Diabetes mellitus Qualifiers: Diabetes mellitus type: type 2 Diabetes mellitus complication status: with kidney complications Diabetes mellitus complication detail: with chronic kidney disease Diabetes mellitus skilled nursing insulin use: without skilled nursing use Chronic kidney disease stage: stage 3 (moderate) Qualified Code(s): E11.22 - Type 2 diabetes mellitus with diabetic chronic kidney disease; N18.1 - Chronic kidney disease, stage 1; Z79.4 - detention ( current) use of insulin Is this a current diagnosis for this admission?: Yes (14) Neuropathy, diabetic Qualifiers: Diabetes mellitus type: type 2 Diabetes mellitus complication detail: diabetic polyneuropathy Qualified Code(s): E11.42 - Type 2 diabetes mellitus with diabetic polyneuropathy (15) DNR (do not resuscitate) Is this a current diagnosis for this admission?: Yes - Time Time Spent with patient: 35 or more minutes Medications reviewed and adjusted accordingly: Yes
[2016-08-04] MEDS ORDERED: SCOPOLAMINE HYDROBROMIDE 1.5 MG PATCH.TD72 TD SCH (20:00)
[2016-08-04] MEDS: LORAZEPAM INJ 2 MG/1 ML VIAL IV PRN (22:06)
[2016-08-04] MEDS: ATROPINE SULFATE 1% OPH SOLN 5 ML BOTTLE SL PRN (22:20)
[2016-08-05] MEDS: LORAZEPAM INJ 2 MG/1 ML VIAL IV PRN ×3 (00:40→04:27)
[2016-08-05] MEDS: ATROPINE SULFATE 1% OPH SOLN 5 ML BOTTLE SL PRN (03:45)
--- NOTE | 2016-08-05 17:52 | Death Summary ---
Summary Date : 08/05/16 Time of :: 07:03 Autopsy: No Resuscitation Status: Comfort Measures Only Consulting Provider: Dr. mcnally - Final Diagnosis (1) Decompensated COPD with exacerbation (chronic obstructive pulmonary disease) Is this a current diagnosis for this admission?: Yes (2) Pneumonia Is this a current diagnosis for this admission?: Yes (3) Acute respiratory acidosis Is this a current diagnosis for this admission?: Yes (4) Acute and chronic respiratory failure with hypercapnia Is this a current diagnosis for this admission?: Yes (5) Acute worsening of stage 4 chronic kidney disease Is this a current diagnosis for this admission?: Yes (6) Acute kidney injury superimposed on chronic kidney disease Is this a current diagnosis for this admission?: Yes (7) Anemia Is this a current diagnosis for this admission?: Yes (8) Anemia in chronic illness Is this a current diagnosis for this admission?: Yes (9) Balance disorder Is this a current diagnosis for this admission?: Yes (10) CHF (congestive heart failure) Is this a current diagnosis for this admission?: Yes (11) Colon cancer Is this a current diagnosis for this admission?: Yes (12) Diabetes mellitus Is this a current diagnosis for this admission?: Yes (13) Neuropathy, diabetic Is this a current diagnosis for this admission?: Yes (14) Ambulatory dysfunction Is this a current diagnosis for this admission?: Yes (15) Morbid obesity with BMI of 40.0-44.9, adult Is this a current diagnosis for this admission?: Yes Hospital Course:: GARCIA CORBIN is a 76 year old female that was recently discharged from the hospital for COPD exacerbation presents to the hospital with worsening shortness of breath and occasional chills. 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 She is normally followed by Dr. Belcher of pulmonary medicine for this. It is noteworthy that she also has stage III colon cancer that was diagnosed last year for which she sees Dr. Chelsea Pelletier of oncology. She has been undergoing treatment with Xeloda every other week but she and her daughter have decided to discontinue this treatment. Her last dose of this medication was one week ago. Patient has stage III chronic kidney disease for which she has been seen on one occasion by Dr. Mcnally of nephrology. Patient was found to have pneumonia as well as worsening of her chronic kidney disease. Patient was started on broad-spectrum antibiotics for healthcare associated pneumonia and patient only made very marginal improvements. Patient continued to worsen over the course of her stay from a renal standpoint as patient's COPD became difficult to control and her pCO2 went up to 140. Patient was acidotic and obtunded at that time. Patient had been a DO NOT RESUSCITATE/DO NOT INTUBATE since the time of admission and in light of her acute change in status discussion was had with her daughter who elected to remove her mother to comfort measures. Patient was placed on morphine and Ativan and BiPAP was removed and patient in the presence of her family. Patient was pronounced by 2 RNs. No autopsy was requested.
== END 2016-08-05 10:33 | DRG 189 ==
LOC: ER 23:25 → EH 07-30 06:19 → UNDOADMIN 07-30 06:19 → EH 07-30 08:27 → 3S 07-30 14:36
PROVIDERS: ADMIT Family Medicine; ATTEND Family Medicine
PROC: 02HV33Z Insertion of Infusion Device into Superior Vena Cava, Percutaneous Approach (ICD-10-PCS; principal; 2016-07-30)
PROC: B5181ZA Fluoroscopy of Superior Vena Cava using Low Osmolar Contrast, Guidance (ICD-10-PCS; 2016-07-30)
PROC: B548ZZA Ultrasonography of Superior Vena Cava, Guidance (ICD-10-PCS; 2016-07-30)
DX: J96.22 Acute and chronic respiratory failure with hypercapnia (principal); J18.9 Pneumonia, unspecified organism; J44.1 Chronic obstructive pulmonary disease with (acute) exacerbation; I13.0 Hypertensive heart and chronic kidney disease with heart failure and stage 1 through stage 4 chronic kidney disease, or unspecified chronic kidney disease; C18.9 Malignant neoplasm of colon, unspecified; I50.30 Unspecified diastolic (congestive) heart failure; N17.9 Acute kidney failure, unspecified; E87.2 Acidosis; Z51.5 Encounter for palliative care; Z66 Do not resuscitate; E11.22 Type 2 diabetes mellitus with diabetic chronic kidney disease; N18.3 Chronic kidney disease, stage 3 (moderate); D50.0 Iron deficiency anemia secondary to blood loss (chronic); E11.21 Type 2 diabetes mellitus with diabetic nephropathy; E87.5 Hyperkalemia; D63.8 Anemia in other chronic diseases classified elsewhere; E66.01 Morbid (severe) obesity due to excess calories; K21.9 Gastro-esophageal reflux disease without esophagitis; K59.09 Other constipation; Z99.81 Dependence on supplemental oxygen; Z86.14 Personal history of Methicillin resistant Staphylococcus aureus infection; Z68.39 Body mass index [BMI] 39.0-39.9, adult; Z79.4 Long term (current) use of insulin
CPT/HCPCS: 36415; 36569; 51701; 71010; 71020; 76937; 77001; 78582; 80048; 80053; 81001; 82550; 82553; 82803; 82962; 83036; 83605; 83735; 83880; 84484; 85025; 85610; 85652; 87040; 87086; 93005; 93010; 93306; 94640; 94660; 99285; A9540; A9567; G8978-GP; G8979-GP; J0610; J1642; J1644; J1815; J1956; J2060; J2920; J3490; J7512; J7620; Q9969; S0028